=== PATIENT | male | born 1940 | race Caucasian/White ===

== ENCOUNTER 2022-04-14 14:35 | Inpatient (IN) ==
[2022-04-14] MEDS ORDERED: SODIUM CHLORIDE 0.9% 500 ML IV SCH (15:15)
--- NOTE | 2022-04-14 15:15 | Emergency Department Note ---
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 Evidently had COVID about 8 weeks ago and recovering from this but not quite back to baseline. Had Mohs surgery for a right cheek lesion fairly extensive in nature 2 weeks ago today. Evidently started Keflex for antibiotics after this but missed may be the first day of antibiotics with this. Developed an infection here and was admitted for a week at [facility] discharged on Tuesday. Is on vancomycin and discharged on doxycycline. Had a little bit of nausea then but worsened nausea last several days at home with generalized weakness hardly getting around. No diarrhea reported. Not reporting pain. No trauma or falls reported. Still having dressing changes but stop the doxycycline a day or 2 ago as he thought this may be upsetting his stomach. Daughter provides supplemental history as the patient is quite fatigued. Patient's been having again nausea and vomiting issues and not eating much. Did take a dose or 2 of Cipro during this time as well. History of resistant urine infections in the past. REVIEW OF SYSTEMS: A total of 10 review of systems was obtained and negative except as stated above in the HPI. 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 EYES: No injection, discharge or icterus. NECK: Trachea midline. ENT: Mucous membranes pink and moist. LUNGS: Airway patent. No retractions. Breath sounds clear HEART: Regular rate and rhythm. No chest wall tenderness ABDOMEN: Soft and non-tender, without guarding or rebound. Suprapubic catheter in place without significant surrounding erythema or bloody discharge. BACK:No bilateral flank tenderness. SKIN: Acyanotic, warm, dry, without rashes EXTREMITIES: Without swelling, tenderness or deformity NEUROLOGICAL: No focal deficits. No aphasia. No facial droop or slurred speech. EK bpm sinus rhythm with PACs. No acute ST segment elevation or depression some nonspecific T wave changes. QTc 470. CONTINUOUS CARDIAC MONITORING: was ordered and showed a heart rate of 70s-80s bpm in normal sinus rhythm occasional PAC Patient's laboratory studies and imaging reviewed. Differential includes Infection, dehydration, metabolic abnormality, hypo/hyperglycemia, electrolyte disturbance, anemia, hypoxia, cardiac sources, intracerebral event, toxicologic, neurologic, as well as other pathologies. IMPRESSION/MEDICAL DECISION MAKING: Reviewed patient's records from [facility] from recent admission there. Had MRSA cultures from the facial wound. Now very weak at home. History of resistant UTIs in the past on suppressive therapy but has not had catheter changed in several weeks. We will change here and obtain sample as well as blood cultures and surface culture from the right cheek wound. Patient not tolerating his doxycycline at home and having nausea and vomiting. Benign abdomen on exam and not having focal neurological deficits. Given his decreased activity and the vomiting however we will complete a CT of the head as well as the abdomen pelvis to exclude occult intracranial injury or occult abdominal issue. Does begin vomiting here with some trace amounts of blood. Given some IV Tylenol and Zofran. No anemia or significant leukocytosis on blood work. Lactate is elevated 3.3 and given IV fluid resuscitation. Mild hyponatremia. Minimal troponin elevation. TSH is elevated. Negative COVID luckily. Given vancomycin for history of MRSA of the facial wound. Urinalysis is somewhat concerning for infection. CT of the head and abdomen pelvis per radiology without significant findings. Still bit nauseous with some brown contents. Given some Protonix but not clearly an upper GI bleed. Urinalysis does question some yeast and will defer to the hospitalist possible fungal treatment for urine. Did replace the patient's suprapubic catheter at bedside in the standard fashion with sterile technique and Betadine prep. 18 Citizen Of [place] Senior was exchanged without complication and new Senior bag connected as well. Patient tolerated well. DIAGNOSIS: Weakness, face cellulitis, nausea and vomiting, acute UTI DISPOSITION: Hospitalist will evaluate. Daughter and patient updated at bedside. 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 > follows with neuro History of kidney stones Hx of sepsis October 2020 from infection of the urinary sphincter > sphincter then removed Insomnia Interstitial lung disease Prostate cancer 2001 > radiation/chemo, now just Zytiga daily Suprapubic catheter in place Surgical History H/O radical prostatectomy History of adenoidectomy History of cataract surgery RT History of colonoscopy History of tonsillectomy History of tooth extraction History of urinary tract surgery urinary sphincter placed approx year after prostate surgery > since removed Family History Mother Diabetes Father Diabetes Social History Smoking Status: Unknown if ever smoked Second Hand Exposure: No; Hx Alcohol Use: No Hx Substance Use: No Preferred Language: Tajik Communication Ability: Effective Overhead Line Worker Required: No Beliefs That Will Affect Care: None Current Living Situation: Family Feels Safe at Home: Yes Assistive Devices: Glasses and Walker Allergies Allergies Allergy/AdvReac Type Severity Reaction Status Date / Time No Known Allergies Allergy Verified 04/14/22 18:32 Home Meds Home Medications Medication Instructions Recorded Confirmed ascorbic acid (vitamin C) 500 mg 500 mg PO BID 08/10/21 04/14/22 tablet (Vitamin C) cholecalciferol (vitamin D3) 50 50 mcg PO QAM 08/10/21 04/14/22 mcg (2,000 unit) tablet (Vitamin D3) diphenoxylate-atropine 2.5 1 tab PO DAILY PRN Diarrhea 08/10/21 04/14/22 mg-0.025 mg tablet (Lomotil) estradiol 2 mg tablet 2 mg PO QAM 08/10/21 04/14/22 leuprolide acetate (6 month) 45 mg 45 mg IM DIRECTED 08/10/21 04/14/22 intramuscular syringe kit (Lupron Depot) metoprolol succinate 25 mg 25 mg PO QAM 08/10/21 04/14/22 tablet,extended release 24 hr prednisone 5 mg tablet 5 mg PO BID 08/10/21 04/14/22 aspirin 81 mg tablet,delayed 81 mg PO Q OTHER DAY 11/05/21 04/14/22 release abiraterone 500 mg tablet (Zytiga) 1,000 mg PO DAILYBB 04/14/22 04/14/22 atorvastatin 40 mg tablet 40 mg PO DAILY 04/14/22 04/14/22 calcium citrate 200 mg (950 mg) 200 mg PO DAILY 04/14/22 04/14/22 tablet coenzyme Q10 100 mg capsule 100 mg PO DAILY 04/14/22 04/14/22 (CoQ-10) cranberry extract 425 mg capsule 425 mg PO BID 04/14/22 04/14/22 (Cranberry Juice Powder) doxycycline hyclate 100 mg capsule 100 mg PO BID 04/14/22 04/14/22 famotidine 10 mg tablet (Pepcid AC) 10 mg PO HS PRN Gastric Reflux 04/14/22 04/14/22 magnesium 143 mg PO HS 04/14/22 04/14/22 magnesium hydroxide 400 mg/5 mL 15 ml PO DAILY PRN Constipation 04/14/22 04/14/22 oral suspension (Milk of Magnesia) methenamine hippurate 1 gram tablet 1 g PO BID 04/14/22 04/14/22 cvxrhhthcqko-zqsatwge-[id number] tablet 1 tab PO DAILY 04/14/22 04/14/22 mupirocin 2 % topical ointment 1 applic topical DAILY 04/14/22 04/14/22 nitrofurantoin macrocrystal 50 mg 500 mg PO BID 04/14/22 04/14/22 capsule sulfamethoxazole 800 1 tab PO BID 04/14/22 04/14/22 mg-trimethoprim 160 mg tablet zinc 50 mg capsule 50 mg PO DAILY 04/14/22 04/14/22 Results & Data (ED) Vital Signs Vital Signs - 24 hr 04/14/22 14:25 04/14/22 16:34 04/14/22 15:01 Temperature 37.5 C Temperature Source Oral Pulse Rate 98 H 88 Pulse Rate [Apical] 74 Pulse Rhythm Regular Pulse Strength Normal Respiratory Rate 18 Respiratory Effort / Characteristics Non-Labored Non-Labored Respiratory Depth Normal Normal Respiratory Pattern Regular Regular Blood Pressure 144/55 H Blood Pressure [Right Arm] 155/75 H Blood Pressure Mean 84 Blood Pressure Mean [Right Arm] 101 Blood Pressure Position Lying Blood Pressure Position [Right Arm] Lying Pulse Oximetry 98 99 99 Oxygen Delivery Method Room Air Room Air Room Air Sepsis Recent Fever Within 48 Hours No Sepsis New/Unexplained Change in Mental Status No Sepsis Action Taken by Nursing No Action Required 04/14/22 18:00 04/14/22 20:00 Temperature 37.1 C Temperature Source Oral Pulse Rate Pulse Rate [Apical] 85 84 Pulse Rhythm Pulse Strength Respiratory Rate 22 20 Respiratory Effort / Characteristics Non-Labored Respiratory Depth Normal Respiratory Pattern Regular Blood Pressure Blood Pressure [Right Arm] 111/58 L 106/65 Blood Pressure Mean Blood Pressure Mean [Right Arm] 75 78 Blood Pressure Position Blood Pressure Position [Right Arm] Lying Pulse Oximetry 98 94 Oxygen Delivery Method Room Air Room Air Sepsis Recent Fever Within 48 Hours Sepsis New/Unexplained Change in Mental Status Sepsis Action Taken by Nursing Laboratory Data Result diagrams: 04/14/22 15:27 04/14/22 15:27 Lab Results 04/14/22 04/14/22 04/14/22 Range/Units 15:27 15:27 15:27 WBC 5.88 (4.8-10.8) K/ul RBC 4.07 L (4.63-6.08) M/uL Hgb 13.0 L (14.0-18.0) g/dl Hct 39.1 L (40.1-51.0) % MCV 96.1 (80.0-100.0) fL MCH 31.9 (25.0-34.0) pg MCHC 33.2 (32.0-36.0) g/dL RDW Std Deviation 44.6 (36.4-46.3) fL RDW Coeff of [place] 12.7 (11.5-14.5) % Plt Count 324 (130-400) K/uL MPV 9.8 (9.4-12.4) fL Immature Gran % (Auto) 0.7 % Neut % (Auto) 64.1 % Lymph % (Auto) 16.2 % [place] % (Auto) 12.4 % Eos % (Auto) 6.1 % Baso % (Auto) 0.5 % Neut # (Auto) 3.77 (1.4-6.5) K/uL Lymph # (Auto) 0.95 L (1.2-3.4) K/uL [place] # (Auto) 0.73 (0.24-0.82) K/uL Eos # (Auto) 0.36 (0-0.50) K/uL Baso # (Auto) 0.03 (0-0.2) K/uL Immature Gran # (Auto) 0.04 H (0.00-0.02) K/uL PT (9.0-12.0) Seconds INR (0.9-1.1) Sodium 132 L (136-145) mmol/L Potassium 3.8 (3.5-5.1) mmol/L Chloride 99 (98-107) mmol/L Carbon Dioxide 24 (21-32) mmol/L Anion Gap 9 (3-11) BUN 7 (6-23) mg/dl Creatinine 0.98 (0.6-1.4) mg/dl Est Cr Clr Drug Dosing 52.4 ml/min Est GFR ( Amer) 82.9 ml/min Est GFR (Non-Af Amer) 71.5 ml/min BUN/Creatinine Ratio 7.1 L (10-20) Glucose 94 (70-99(Fasting)) mg/dl POC Glucose (70-99) mg/dl Lactate (0.4-2.0) mmol/L Calcium 8.7 (8.5-10.1) mg/dl Magnesium 1.7 (1.7-2.4) mg/dl Total Bilirubin 0.9 (0.2-1.0) mg/dl AST 40 H (13-39) U/L ALT 24 (7-52) U/L Alkaline Phosphatase 118 H (34-104) U/L Troponin I High Sens 21.2 H (0-20) pg/ml Total Protein 6.1 (6.0-8.3) gm/dl Albumin 2.9 L (3.4-5.0) gm/dl Globulin 3.2 (2.5-4.0) gm/dl Albumin/Globulin Ratio 0.9 (0.9-2) Lipase 25 (11-82) U/L Procalcitonin (0-0.5) ng/ml TSH 13.331 H (0.300-4.500) uIu/ml Free T4 0.93 (0.61-1.60) ng/dl Urine Color Urine Appearance (Clear) Urine pH (4.5-7.5) Ur Specific [place] (1.000-1.030) Urine Protein (Negative) Urine Glucose (UA) (Negative) Urine Ketones (Negative) Urine Blood (Negative) Urine Nitrite (Negative) Urine Bilirubin (Negative) Urine Urobilinogen (Negative) Ur Leukocyte Esterase (Negative) Urine WBC (Auto) (0-5) /hpf Urine RBC (Auto) (0-4) /hpf U Hyaline Cast (Auto) (0-5) /lpf U Epithel Cells (Auto) (0-5) /lpf Urine Bacteria (Auto) (Negative) Ur Renal Epithelial Cell (0-5) /lpf Urine Crystals Urine Yeast (None Prsent) SARS-CoV-2, RNA, NAAT (NEGATIVE) 04/14/22 04/14/22 04/14/22 Range/Units 15:27 15:32 15:32 WBC (4.8-10.8) K/ul RBC (4.63-6.08) M/uL Hgb (14.0-18.0) g/dl Hct (40.1-51.0) % MCV (80.0-100.0) fL MCH (25.0-34.0) pg MCHC (32.0-36.0) g/dL RDW Std Deviation (36.4-46.3) fL RDW Coeff of [place] (11.5-14.5) % Plt Count (130-400) K/uL MPV (9.4-12.4) fL Immature Gran % (Auto) % Neut % (Auto) % Lymph % (Auto) % [place] % (Auto) % Eos % (Auto) % Baso % (Auto) % Neut # (Auto) (1.4-6.5) K/uL Lymph # (Auto) (1.2-3.4) K/uL [place] # (Auto) (0.24-0.82) K/uL Eos # (Auto) (0-0.50) K/uL Baso # (Auto) (0-0.2) K/uL Immature Gran # (Auto) (0.00-0.02) K/uL PT 14.2 H (9.0-12.0) Seconds INR 1.4 H (0.9-1.1) Sodium (136-145) mmol/L Potassium (3.5-5.1) mmol/L Chloride (98-107) mmol/L Carbon Dioxide (21-32) mmol/L Anion Gap (3-11) BUN (6-23) mg/dl Creatinine (0.6-1.4) mg/dl Est Cr Clr Drug Dosing ml/min Est GFR ( Amer) ml/min Est GFR (Non-Af Amer) ml/min BUN/Creatinine Ratio (10-20) Glucose (70-99(Fasting)) mg/dl POC Glucose (70-99) mg/dl Lactate 3.3 H* (0.4-2.0) mmol/L Calcium (8.5-10.1) mg/dl Magnesium (1.7-2.4) mg/dl Total Bilirubin (0.2-1.0) mg/dl AST (13-39) U/L ALT (7-52) U/L Alkaline Phosphatase (34-104) U/L Troponin I High Sens (0-20) pg/ml Total Protein (6.0-8.3) gm/dl Albumin (3.4-5.0) gm/dl Globulin (2.5-4.0) gm/dl Albumin/Globulin Ratio (0.9-2) Lipase (11-82) U/L Procalcitonin 0.25 (0-0.5) ng/ml TSH (0.300-4.500) uIu/ml Free T4 (0.61-1.60) ng/dl Urine Color Urine Appearance (Clear) Urine pH (4.5-7.5) Ur Specific [place] (1.000-1.030) Urine Protein (Negative) Urine Glucose (UA) (Negative) Urine Ketones (Negative) Urine Blood (Negative) Urine Nitrite (Negative) Urine Bilirubin (Negative) Urine Urobilinogen (Negative) Ur Leukocyte Esterase (Negative) Urine WBC (Auto) (0-5) /hpf Urine RBC (Auto) (0-4) /hpf U Hyaline Cast (Auto) (0-5) /lpf U Epithel Cells (Auto) (0-5) /lpf Urine Bacteria (Auto) (Negative) Ur Renal Epithelial Cell (0-5) /lpf Urine Crystals Urine Yeast (None Prsent) SARS-CoV-2, RNA, NAAT (NEGATIVE) 04/14/22 04/14/22 04/14/22 Range/Units 15:34 15:43 16:33 WBC (4.8-10.8) K/ul RBC (4.63-6.08) M/uL Hgb (14.0-18.0) g/dl Hct (40.1-51.0) % MCV (80.0-100.0) fL MCH (25.0-34.0) pg MCHC (32.0-36.0) g/dL RDW Std Deviation (36.4-46.3) fL RDW Coeff of [place] (11.5-14.5) % Plt Count (130-400) K/uL MPV (9.4-12.4) fL Immature Gran % (Auto) % Neut % (Auto) % Lymph % (Auto) % [place] % (Auto) % Eos % (Auto) % Baso % (Auto) % Neut # (Auto) (1.4-6.5) K/uL Lymph # (Auto) (1.2-3.4) K/uL [place] # (Auto) (0.24-0.82) K/uL Eos # (Auto) (0-0.50) K/uL Baso # (Auto) (0-0.2) K/uL Immature Gran # (Auto) (0.00-0.02) K/uL PT (9.0-12.0) Seconds INR (0.9-1.1) Sodium (136-145) mmol/L Potassium (3.5-5.1) mmol/L Chloride (98-107) mmol/L Carbon Dioxide (21-32) mmol/L Anion Gap (3-11) BUN (6-23) mg/dl Creatinine (0.6-1.4) mg/dl Est Cr Clr Drug Dosing ml/min Est GFR ( Amer) ml/min Est GFR (Non-Af Amer) ml/min BUN/Creatinine Ratio (10-20) Glucose (70-99(Fasting)) mg/dl POC Glucose 90 (70-99) mg/dl Lactate (0.4-2.0) mmol/L Calcium (8.5-10.1) mg/dl Magnesium (1.7-2.4) mg/dl Total Bilirubin (0.2-1.0) mg/dl AST (13-39) U/L ALT (7-52) U/L Alkaline Phosphatase (34-104) U/L Troponin I High Sens (0-20) pg/ml Total Protein (6.0-8.3) gm/dl Albumin (3.4-5.0) gm/dl Globulin (2.5-4.0) gm/dl Albumin/Globulin Ratio (0.9-2) Lipase (11-82) U/L Procalcitonin (0-0.5) ng/ml TSH (0.300-4.500) uIu/ml Free T4 (0.61-1.60) ng/dl Urine Color Yellow Urine Appearance Turbid A (Clear) Urine pH 8.5 H (4.5-7.5) Ur Specific [place] 1.011 (1.000-1.030) Urine Protein Trace H (Negative) Urine Glucose (UA) Negative (Negative) Urine Ketones Negative (Negative) Urine Blood Negative (Negative) Urine Nitrite Negative (Negative) Urine Bilirubin Negative (Negative) Urine Urobilinogen Negative (Negative) Ur Leukocyte Esterase 3+ H (Negative) Urine WBC (Auto) >30 H (0-5) /hpf Urine RBC (Auto) 0-4 (0-4) /hpf U Hyaline Cast (Auto) 1-5 (0-5) /lpf U Epithel Cells (Auto) 20-30 H (0-5) /lpf Urine Bacteria (Auto) Negative (Negative) Ur Renal Epithelial Cell 0-5 (0-5) /lpf Urine Crystals Not Reportable Urine Yeast Budding w/ Hyphae A (None Prsent) SARS-CoV-2, RNA, NAAT NEGATIVE (NEGATIVE) 04/14/22 Range/Units 17:43 WBC (4.8-10.8) K/ul RBC (4.63-6.08) M/uL Hgb (14.0-18.0) g/dl Hct (40.1-51.0) % MCV (80.0-100.0) fL MCH (25.0-34.0) pg MCHC (32.0-36.0) g/dL RDW Std Deviation (36.4-46.3) fL RDW Coeff of [place] (11.5-14.5) % Plt Count (130-400) K/uL MPV (9.4-12.4) fL Immature Gran % (Auto) % Neut % (Auto) % Lymph % (Auto) % [place] % (Auto) % Eos % (Auto) % Baso % (Auto) % Neut # (Auto) (1.4-6.5) K/uL Lymph # (Auto) (1.2-3.4) K/uL [place] # (Auto) (0.24-0.82) K/uL Eos # (Auto) (0-0.50) K/uL Baso # (Auto) (0-0.2) K/uL Immature Gran # (Auto) (0.00-0.02) K/uL PT (9.0-12.0) Seconds INR (0.9-1.1) Sodium (136-145) mmol/L Potassium (3.5-5.1) mmol/L Chloride (98-107) mmol/L Carbon Dioxide (21-32) mmol/L Anion Gap (3-11) BUN (6-23) mg/dl Creatinine (0.6-1.4) mg/dl Est Cr Clr Drug Dosing ml/min Est GFR ( Amer) ml/min Est GFR (Non-Af Amer) ml/min BUN/Creatinine Ratio (10-20) Glucose (70-99(Fasting)) mg/dl POC Glucose (70-99) mg/dl Lactate 1.8 (0.4-2.0) mmol/L Calcium (8.5-10.1) mg/dl Magnesium (1.7-2.4) mg/dl Total Bilirubin (0.2-1.0) mg/dl AST (13-39) U/L ALT (7-52) U/L Alkaline Phosphatase (34-104) U/L Troponin I High Sens (0-20) pg/ml Total Protein (6.0-8.3) gm/dl Albumin (3.4-5.0) gm/dl Globulin (2.5-4.0) gm/dl Albumin/Globulin Ratio (0.9-2) Lipase (11-82) U/L Procalcitonin (0-0.5) ng/ml TSH (0.300-4.500) uIu/ml Free T4 (0.61-1.60) ng/dl Urine Color Urine Appearance (Clear) Urine pH (4.5-7.5) Ur Specific [place] (1.000-1.030) Urine Protein (Negative) Urine Glucose (UA) (Negative) Urine Ketones (Negative) Urine Blood (Negative) Urine Nitrite (Negative) Urine Bilirubin (Negative) Urine Urobilinogen (Negative) Ur Leukocyte Esterase (Negative) Urine WBC (Auto) (0-5) /hpf Urine RBC (Auto) (0-4) /hpf U Hyaline Cast (Auto) (0-5) /lpf U Epithel Cells (Auto) (0-5) /lpf Urine Bacteria (Auto) (Negative) Ur Renal Epithelial Cell (0-5) /lpf Urine Crystals Urine Yeast (None Prsent) SARS-CoV-2, RNA, NAAT (NEGATIVE) Administered Medications Discontinued Medications Sodium Chloride (Nss) 500 mls @ 999 mls/hr IV .Q31M JOSE ANTONIO Stop: 04/14/22 15:45 Last Infusion: 04/14/22 16:42 Dose: 0 mls/hr Documented By: Admin: 04/14/22 15:54 Dose: 999 mls/hr Documented By: QGV Sodium Chloride (Nss 1000ml) 1,000 mls @ 999 mls/hr IV .Q1H1M ONE Stop: 04/14/22 17:18 Last Infusion: 04/14/22 18:37 Dose: 0 mls/hr Documented By: Admin: 04/14/22 16:23 Dose: 999 mls/hr Documented By: QGV Acetaminophen (Ofirmev) 1,000 mg in 100 mls @ 400 mls/hr IV NOW STA Stop: 04/14/22 16:32 Last Infusion: 04/14/22 16:42 Dose: 0 mls/hr Documented By: Admin: 04/14/22 16:22 Dose: 400 mls/hr Documented By: QGV Vancomycin HCl 1,500 mg/ (Sodium Chloride) 530 mls @ 200 mls/hr IV NOW ONE Stop: 04/14/22 19:36 Last Admin: 04/14/22 18:27 Dose: 200 mls/hr Documented By: QGV Pantoprazole Sodium 80 mg/ (Dextrose) 100 mls @ 400 mls/hr IV ONE STA Stop: 04/14/22 17:50 Last Infusion: 04/14/22 18:58 Dose: 0 mls/hr Documented By: Admin: 04/14/22 18:34 Dose: 400 mls/hr Documented By: QGV Ondansetron HCl (Ondansetron Inj 2 Mg/Ml 2 Ml Vial) 4 mg IV NOW STA Stop: 04/14/22 16:09 Last Admin: 04/14/22 16:23 Dose: 4 mg Documented By: QGV Ondansetron HCl (Ondansetron Inj 2 Mg/Ml 2 Ml Vial) 4 mg IV NOW STA Stop: 04/14/22 17:38 Last Admin: 04/14/22 18:27 Dose: 4 mg Documented By: QGV Imaging Data Radiologist's Impression: Chest X-Ray 04/14/22 15:01 XR chest 1V portable CLINICAL HISTORY: weakness TECHNIQUE: Single frontal radiograph of the chest was obtained. Comparison: None available at the time of this dictation. FINDINGS: No lines and tubes are seen. Calcified aortic knob is seen. Prominence and cephalization of the vasculature is seen. No evidence of pleural effusion or pneumothorax. IMPRESSION: Mild pulmonary edema. ACT 112: Negative or not required by law. Electronically signed by: Dieudonne García M.D. 04/14/2022 5:04 PM KUB X-Ray 04/14/22 15:01 XR KUB/Abdomen 1 view CLINICAL HISTORY: vomiting, weak TECHNIQUE: 1 view of the abdomen was obtained. Comparison: None available at the time of this dictation. FINDINGS: Surgical clips are seen in the pelvis. The osseous structures are grossly unremarkable. There is a mildly distended loop of small bowel measuring 32 mm in diameter. A moderate amount of stool is noted within the large bowel. IMPRESSION: No definite evidence of small bowel obstruction, although a 32 mm loop of small bowel is noted in the right abdomen. Attention on CT abdomen pelvis is rec ommended. ACT 112: Negative or not required by law. Electronically signed by: Dieudonne García M.D. 04/14/2022 5:04 PM Abdomen/Pelvis CT 04/14/22 16:18 CT abd pelvis wo con CLINICAL HISTORY: vomiting, weak TECHNIQUE: Helical axial images of the abdomen and pelvis were obtained. Au tomated dose lowering techniques and/or adjustment according to patient size were utilized for this exam. This exam was performed without intravenous contrast. CT DOSE: 1529.17 mGy.cm COMPARISON: None available at the time of this dictation. FINDINGS: Lower chest: Peripheral reticular interstitial changes and bronchiectasis are seen. Liver: Unremarkable. No focal lesions are seen. Gallbladder and biliary tree: No calcified gallstones. Normal caliber wall. No intra- or extrahepatic biliary ductal dilation. Pancreas: Unremarkable, no focal lesions. Spleen: Unremarkable. Adrenals: Unremarkable. Kidneys and ureters: Perinephric stranding is noted bilaterally. Bladder: A suprapubic catheter is seen. The bladder is decompressed. Reproductive organs: Surgical clips are seen, patient may be status post prostatectomy. Bowel: There is a small hiatal hernia. A fluid-filled esophagus is noted. There are a few loops of distended small bowel measuring up to 30 mm in diameter, with no evidence of transition point or significant dilation. Lymph nodes Retroperitoneal: Unremarkable. Pelvic: Few calcifications are noted in the pelvic sidewall. Mesenteric: Unremarkable. Peritoneum: Normal. Vessels: Atherosclerotic calcifications are seen. Abdominal wall: Unremarkable. Bones: Degenerative changes in the visualized spine. A blastic focus is noted in the vertebral body of L1 which may represent a bone island. IMPRESSION: 1. There are mildly distended loops of small bowel but no yue dilation to suggest small bowel obstruction. 2. There is a small hiatal hernia with liquid contents in the esophagus compatible with recent vomiting. 3. Reticular opacities in the lung bases may represent interstitial lung disease. ACT 112: Negative or not required by law. Electronically signed by: Dieudonne García M.D. 04/14/2022 5:[address] 04/14/22 16:18 CT head/brain wo con CLINICAL HISTORY: weak, vomiting Technique: Contiguous axial CT images of the head were acquired from the base of the skull to the vertex without intravenous contrast administration. Images were viewed in brain, subdural and bone windows. Automated dose lowering techniques and/or adjustment according to patient size were utilized for this exam. Comparison: None available at the time of this dictation. Findings: Exam is limited by patient motion. Areas of decreased attenuation are present in the periventricular and subcortical white matter bilaterally consistent with small vessel ischemic disease. Generalized cerebral atrophy with commensurate enlargement of the ventricles, sulci, and cisterns is also present. There is no acute intracranial hemorrhage or evidence of acute territorial infarction. No shift of the midline structures, mass effect, or extra-axial abnormalities are shown. Atherosclerotic calcifications are present in the intracranial segments of the internal carotid arteries. Calcifications are noted in the falx. Soft tissue thickening is in the left maxillary sinus. The orbits appear normal. There are no acute fractures of the calvaria or scalp swelling. Impression: No acute intracranial hemorrhage, no evidence of acute territorial infarction or other acute intracranial disease process. ACT 112: Negative or not required by law. Electronically signed by: Dieudonne García M.D. 04/14/2022 5:05 PM Discharge Plan Visit Data Chief Complaint: Infection ED Provider: Aries Hartmann Discharge Problem: Recurrent urinary tract infection, Weakness, Nausea & vomiting, Elevated lactic acid level Patient Disposition: Admitted As Inpatient Forms Stand Alone Forms: [facility] Prescriptions Prescriptions: No Action doxycycline hyclate 100 mg capsule 100 mg PO BID Rx Instructions: take for 9 days ordered 04/10/22 sulfamethoxazole-trimethoprim 800-160 mg tablet 1 tab PO BID Rx Instructions: take for 14 days ordered 04/13/22 mupirocin 2 % ointment 1 applic TOPICAL DAILY Rx Instructions: start 04/11/22 apply to wound abiraterone [Zytiga] 500 mg Tablet 1,000 mg PO DAILYBB Rx Instructions: take 2 tablets 1 hour before breakfast atorvastatin 40 mg Tablet 40 mg PO DAILY famotidine [Pepcid AC] 10 mg Tablet 10 mg PO HS PRN (Reason: Gastric Reflux) Centrum Silver Tablet 1 tab PO DAILY calcium citrate [Citracal] 200 mg (950 mg) Tablet 200 mg PO DAILY Rx Instructions: total calcium 800 mg & vitamin d 1000 magnesium 143 mg PO HS cranberry extract [Cranberry Juice Powder] 425 mg Capsule 425 mg PO BID Rx Instructions: administer with meals methenamine hippurate 1 gram tablet 1 g PO BID coenzyme Q10 [CoQ-10] 100 mg Capsule 100 mg PO DAILY zinc 50 mg Capsule 50 mg PO DAILY nitrofurantoin macrocrystal 50 mg capsule 500 mg PO BID magnesium hydroxide [Milk of Magnesia] 400 mg/5 mL Suspension 15 ml PO DAILY PRN (Reason: Constipation) prednisone 5 mg Tablet 5 mg PO BID Rx Instructions: take with food diphenoxylate-atropine [Lomotil] 2.5-0.025 mg Tablet 1 tab PO DAILY PRN (Reason: Diarrhea) ascorbic acid (vitamin C) [Vitamin C] 500 mg Tablet 500 mg PO BID estradiol 2 mg Tablet 2 mg PO QAM metoprolol succinate 25 mg Tablet Extended Release 24 Hr 25 mg PO QAM cholecalciferol (vitamin D3) [Vitamin D3] 50 mcg (2,000 unit) Tablet 50 mcg PO QAM Lupron Depot (6 Month) 45 mg Syringe Kit 45 mg IM DIRECTED Rx Instructions: every 6 months aspirin 81 mg Tablet,Delayed Release (Dr/Ec) 81 mg PO Q OTHER DAY Referrals Referrals: Sly Ulloa MD [Primary Care Provider] -
[2022-04-14 15:59] LABS: Basophils # (auto) 0.03 K/uL (0-0.2); Basophils % (auto) 0.5 %; Eosinophils # (auto) 0.36 K/uL (0-0.50); Eosinophils % (auto) 6.1 %; Hematocrit (blood only) 39.1 % (40.1-51.0); Immature Granulocytes # (auto) 0.04 K/uL (0.00-0.02); Immature Granulocytes % (auto) 0.7 %; Lymphocytes # (auto) 0.95 K/uL (1.2-3.4); Lymphocytes % (auto) 16.2 %; Mean Corpuscular Hemoglobin 31.9 pg (25.0-34.0); Mean Corpuscular Hgb Conc 33.2 g/dL (32.0-36.0); Mean Corpuscular Volume 96.1 fL (80.0-100.0); Mean Platelet Volume 9.8 fL (9.4-12.4); Monocytes # (auto) 0.73 K/uL (0.24-0.82); Monocytes % (auto) 12.4 %; Neutrophils # (auto) 3.77 K/uL (1.4-6.5); Neutrophils % (auto) 64.1 %; Platelet Count 324 K/uL (130-400); RDW Coefficient of Variation 12.7 % (11.5-14.5); RDW Standard Deviation 44.6 fL (36.4-46.3); Red Blood Count 4.07 M/uL (4.63-6.08); White Blood Count 5.88 K/ul (4.8-10.8)
[2022-04-14] MEDS ORDERED: ONDANSETRON INJ 2 MG/ML 2 ML VIAL IV STA ×2 (16:08→17:37)
[2022-04-14 16:10] LABS: INR 1.4 (0.9-1.1); Prothrombin Time 14.2 Seconds (9.0-12.0)
[2022-04-14 16:18] LABS: Troponin I High Sensitivity 21.2 pg/ml (0-20)
[2022-04-14] MEDS ORDERED: ACETAMINOPHEN 1,000 MG/100 ML VIAL IV STA (16:18)
[2022-04-14] MEDS ORDERED: SODIUM CHLORIDE 0.9% 1000ML 1,000 ML IV ONE (16:18)
[2022-04-14 16:23] LABS: Albumin Globulin Ratio 0.9 (0.9-2); Albumin Level 2.9 gm/dl (3.4-5.0); BUN Creatinine Ratio 7.1 (10-20); Bilirubin,Total 0.9 mg/dl (0.2-1.0); Calcium 8.7 mg/dl (8.5-10.1); Creatinine Clr Calc Pharmacy 52.4 ml/min; Est GFR (African American) 82.9 ml/min; Est GFR (Non-African American) 71.5 ml/min; Globulin 3.2 gm/dl (2.5-4.0); Magnesium 1.7 mg/dl (1.7-2.4); Potassium 3.8 mmol/L (3.5-5.1); Total Protein 6.1 gm/dl (6.0-8.3)
[2022-04-14 16:26] LABS: Thyroid Stimulating Hormone 13.331 uIu/ml (0.300-4.500)
[2022-04-14 16:56] LABS: Appearance Urine Turbid (Clear); Bacteria Urine Automated Negative (Negative); Bilirubin Urine Negative (Negative); Blood Urine Negative (Negative); Color Urine Yellow; Epithelial Cell Urine Auto 20-30 /lpf (0-5); Glucose Urine UA Negative (Negative); Ketones Urine Negative (Negative); Leukocyte Esterase Urine 3+ (Negative); Nitrite Urine Negative (Negative); Specific Gravity Urine 1.011 (1.000-1.030); Urobilinogen Urine Negative (Negative); WBC Urine Automated >30 /hpf (0-5); pH Urine 8.5 (4.5-7.5)
[2022-04-14] MEDS ORDERED: VANCOMYCIN CONSULT ACTIVE PRN (16:58)
[2022-04-14] MEDS ORDERED: VANCOMYCIN HCL 1,500 MG in SODIUM CHLORIDE 0.9% 500 ML IV ONE (16:58)
[2022-04-14 17:02] LABS: Protein Urine Trace (Negative)
--- NOTE | 2022-04-14 17:05 | XRay Report ---
XR KUB/Abdomen 1 view CLINICAL HISTORY: vomiting, weak TECHNIQUE: 1 view of the abdomen was obtained. Comparison: None available at the time of this dictation. FINDINGS: Surgical clips are seen in the pelvis. The osseous structures are grossly unremarkable. There is a mi ldly distended loop of small bowel measuring 32 mm in diameter. A moderate amount of stool is noted w ithin the large bowel. IMPRESSION: No definite evidence of small bowel obstruction, although a 32 mm loop of small bowel is noted in the right abdomen. Attention on CT abdomen pelvis is recommended. ACT 112: Negative or not required by law. Electronically signed by: Dieudonne García M.D. 04/14/2022 5:04 PM
--- NOTE | 2022-04-14 17:06 | XRay Report ---
XR chest 1V portable CLINICAL HISTORY: weakness TECHNIQUE: Single frontal radiograph of the chest was obtained. Comparison: None available at the time of this dictation. FINDINGS: No lines and tubes are seen. Calcified aortic knob is seen. Prominence and cephalization of the vascu lature is seen. No evidence of pleural effusion or pneumothorax. IMPRESSION: Mild pulmonary edema. ACT 112: Negative or not required by law. Electronically signed by: Dieudonne García M.D. 04/14/2022 5:04 PM
--- NOTE | 2022-04-14 17:07 | CT Scan Report ---
CT head/brain wo con CLINICAL HISTORY: weak, vomiting Technique: Contiguous axial CT images of the head were acquired from the base of the skull to the yamile joselyn without intravenous contrast administration. Images were viewed in brain, [facility]. Automated dose lowering techniques and/or adjustment according to patient size were utilized for this exam. Comparison: None available at the time of this dictation. Findings: Exam is limited by patient motion. Areas of decreased attenuation are present in the periventricular and subcortical white matter bilate rally consistent with small vessel ischemic disease. Generalized cerebral atrophy with commensurate e nlargement of the ventricles, sulci, and cisterns is also present. There is no acute intracranial hem orrhage or evidence of acute territorial infarction. No shift of the midline structures, mass effect, or extra-axial abnormalities are shown. Atherosclerotic calcifications are present in the intracran ial segments of the internal carotid arteries. Calcifications are noted in the falx. Soft tissue thickening is in the left maxillary sinus. The orbits appear normal. There are no acute fractures of the calvaria or scalp swelling. Impression: No acute intracranial hemorrhage, no evidence of acute territorial infarction or other acute intracra nial disease process. ACT 112: Negative or not required by law. Electronically signed by: Dieudonne García M.D. 04/14/2022 5:05 PM
[2022-04-14 17:12] LABS: T4 Free Thyroxine 0.93 ng/dl (0.61-1.60)
[2022-04-14 17:20] LABS: RBC Urine Automated 0-4 /hpf (0-4); Renal Epithelial Cells Urine 0-5 /lpf (0-5)
--- NOTE | 2022-04-14 17:21 | CT Scan Report ---
CT abd pelvis wo con CLINICAL HISTORY: vomiting, weak TECHNIQUE: Helical axial images of the abdomen and pelvis were obtained. Automated dose lowering tech niques and/or adjustment according to patient size were utilized for this exam. This exam was perfor med without intravenous contrast. CT DOSE: 1529.17 mGy.cm COMPARISON: None available at the time of this dictation. FINDINGS: Lower chest: Peripheral reticular interstitial changes and bronchiectasis are seen. Liver: Unremarkable. No focal lesions are seen. Gallbladder and biliary tree: No calcified gallstones. Normal caliber wall. No intra- or extrahepatic biliary ductal dilation. Pancreas: Unremarkable, no focal lesions. Spleen: Unremarkable. Adrenals: Unremarkable. Kidneys and ureters: Perinephric stranding is noted bilaterally. Bladder: A suprapubic catheter is seen. The bladder is decompressed. Reproductive organs: Surgical clips are seen, patient may be status post prostatectomy. Bowel: There is a small hiatal hernia. A fluid-filled esophagus is noted. There are a few loops of di stended small bowel measuring up to 30 mm in diameter, with no evidence of transition point or signif icant dilation. Lymph nodes Retroperitoneal: Unremarkable. Pelvic: Few calcifications are noted in the pelvic sidewall. Mesenteric: Unremarkable. Peritoneum: Normal. Vessels: Atherosclerotic calcifications are seen. Abdominal wall: Unremarkable. Bones: Degenerative changes in the visualized spine. A blastic focus is noted in the vertebral body o f L1 which may represent a bone island. IMPRESSION: 1. There are mildly distended loops of small bowel but no yue dilation to suggest small bowel obst ruction. 2. There is a small hiatal hernia with liquid contents in the esophagus compatible with recent vomit ing. 3. Reticular opacities in the lung bases may represent interstitial lung disease. ACT 112: Negative or not required by law. Electronically signed by: Dieudonne García M.D. 04/14/2022 5:19 PM
[2022-04-14] MEDS ORDERED: PANTOprazole 80 MG in DEXTROSE 5% 100 ML IV STA (17:36)
[2022-04-14] MEDS ORDERED: ONDANSETRON INJ 2 MG/ML 2 ML VIAL IV PRN (22:20)
[2022-04-14] MEDS ORDERED: NITROGLYCERIN SL 0.4 MG/TAB TAB SL PRN (22:20)
[2022-04-14] MEDS ORDERED: ACETAMINOPHEN 325 MG TAB PO PRN (22:20)
[2022-04-14] MEDS: MAGNESIUM OXIDE 400 MG TAB PO SCH (23:12)
[2022-04-14] MEDS: SODIUM CHLORIDE 0.9% 1000ML 1,000 ML IV SCH (23:12)
[2022-04-14] MEDS: ASCORBIC ACID 500 MG TAB PO SCH (23:12)
[2022-04-14] MEDS: PIPERACILLIN/TAZOBACTAM 3.375 GM in DEXTROSE 5% 100 ML IV SCH (23:27)
[2022-04-14] MEDS ORDERED: PIPERACILLIN/TAZOBACTAM 4.5 GM in DEXTROSE 5% 100 ML IV ONE (23:30)
--- NOTE | 2022-04-14 23:35 | History and Physical Report ---
DATE OF ADMISSION: 04/14/2022. CHIEF COMPLAINT: Lethargy, nausea, hematemesis. HISTORY OF PRESENT ILLNESS: This is an 81-year-old male with history of prostate cancer diagnosed in 2001, aggressive disease status post robotic prostatectomy, currently developed urinary incontinence, underwent artificial urinary sphincter placement and has currently suprapubic catheter placed in 2020 as per daughter, since then had 3 sepsis; history of chronic kidney disease stage III; history of chronic diastolic congestive heart failure; chronic atrial fibrillation, anticoagulation with aspirin; history of melanoma and the patient is status post Mohs surgery recently on the right cheek, Mohs surgery was done on 03/30/2022. He was in [facility] recently for his infection on Mohs surgical site. The Mohs surgery was done for melanoma. Cultures were positive for MRSA, he was treated with IV vancomycin. He seems to be improved. Urology was consulted, but catheter was not changed. Advised to follow as outpatient with urology, discharged on doxycycline. He was in the hospital for 1 week and discharged last Tuesday. Daughter is giving the history. After coming home, he was still having lot of nausea, vomiting, they thought it was doxycycline and he stopped it and contacted his family doctor, but by the time the family doctor contacted back, he took Cipro, which was at home, but his nausea, vomiting was not improving. They thought his symptoms could be not from doxycycline as they persisted even after stopping it..Yesterday he was able to ambulate with home PT, but today was very weak, tired, not ambulating, and he vomited about 5-6 times, and had some blood in the vomitus. He has poor appetite, not at all eating.No hematuria. The patient seemed a little confused at home, was brought in here. After fluids and antibiotics, he is more alert and awake as per daughter, and talking. The patient denies any headache, denies any chest pain, no abdominal pain, no back pain, no chest pain. He is little short of breath. Denies any blurred vision or double vision. No earache, no runny nose, no sore throat, no cough. He had COVID about 8 weeks ago. Today COVID test is negative. Alert and oriented x3. Initially his lactic acid on presentation was 3.3, repeat is 1.8. Currently, hemodynamically stable, saturating okay on room air. Daughter is also concerned about his diet because he is not eating much since he got sick. ALLERGIES: No known drug allergies. PAST MEDICAL HISTORY: As mentioned above. PAST SURGICAL HISTORY: BX of skin lesion, correction of artificial sphincter, robotic laparoscopic prostatectomy, repair of bladder opening, replacement of complete tunneled catheter. MEDICATIONS: Currently the patient is on Zytiga 1000 mg p.o. daily, ascorbic acid 500 mg p.o. b.i.d., aspirin 81 mg p.o. every other day, atorvastatin 40 mg p.o. daily, calcium citrate 200 mg p.o. daily, vitamin D 50 mg p.o. daily, Lomotil daily p.r.n., docusate 100 mg p.o. b.i.d., estradiol 2 mg p.o. daily, Lupron shots as directed, magnesium 143 mg p.o. daily, metoprolol succinate 25 mg p.o. daily, MVI 1 tablet p.o. daily, prednisone 5 mg p.o. b.i.d. FAMILY HISTORY: Significant for father has arrhythmia, diabetes, heart disease; mother has heart disease, arrhythmia. SOCIAL HISTORY: , lives with his , daughter and daughter's family. No smoking. Currently, no alcohol, no drug use. REVIEW OF SYSTEMS: As per HPI. Rest of the review of systems is negative. PHYSICAL EXAMINATION: GENERAL: The patient is of moderate build, not in acute distress. VITAL SIGNS: Temperature 37.1, pulse 84, respiratory rate 20, blood pressure 106/65, oxygen 94% on room air. HEENT: Pupils equal, round, and reactive to light. Oral mucosa moist. NECK: No JVD, no neck masses. CARDIOVASCULAR: S1 and S2 heard. Regular rate and rhythm. No murmur, no gallop. RESPIRATORY SYSTEM: Normal AP diameter. No accessory muscle use. No wheezing, no crackles. ABDOMEN: Soft, bowel sounds present, nontender, no distention. CENTRAL NERVOUS SYSTEM: Alert and oriented x3. Speech is clear. No facial droop. Insight is okay. Obeys simple commands. Moves extremities. EXTREMITIES: No edema, no erythema. LABORATORY DATA: WBC 5.8, hemoglobin 13, hematocrit 39.1, platelets 324. PT 14.2, INR 1.4. Sodium 132, potassium 3.8, chloride 99, CO2 of 24, BUN 7, creatinine 0.9, serum glucose 94, lactate initially was 3.3, repeat 1.8, calcium 8.7, magnesium 1.7, total bilirubin 0.9, AST 40, ALT 24, alkaline phosphatase 118. Troponin 1 high sensitivity 21.2, lipase 25, procalcitonin 0.25, TSH 38.3, free T4 of 0.9. Urinalysis, +3 leukocyte esterase. SARS-CoV-2 rapid test negative. IMAGING DATA: CT of the head without contrast, no acute findings. CT of the abdomen and pelvis without contrast, mildly distended loops of small bowel, but no yue dilatation to the small bowel obstruction. Small hiatal hernia with liquid contents that feels comfortable with recent vomiting. Reticular opacities in the lung base, which might represent interstitial lung disease. KUB x-ray, no definite evidence of small-bowel obstruction, although a 32 mm loop of small bowel is noted in the right abdomen. Chest x-ray, mild pulmonary edema. EKG: Sinus rhythm with PACs at a rate of 77, no acute ST changes seen. ASSESSMENT AND PLAN: This is an 81-year-old male who was recently in the [facility] for cellulitis and infection of the right check Mohs surgery area, culture grew MRSA. Presents with nausea, vomiting, and hematemesis. . 1. Possible sepsis with lactic acidosis, lethargy: Could be from the infection of the Mohs surgical site. Recent cultures grew MRSA, possible urinary tract infection. Empirically started on vancomycin and Zosyn. Continue IV fluids. Monitor hemodynamics. Monitor in the tele floor. Follow the cultures. Wound Care and Urology consult in the a.m. ER changing the suprapubic catheter. 2. Hematemesis: Hemodynamically stable. Hemoglobin stable. Blood consent obtained. Holding aspirin and starting on Protonix drip. GI consult in the a.m. 3. History of prostate cancer: s/p proctectomy. Lupron shots , zytiga and prednisone. Holding prednisone for now seems have not taken since discharge from [facility].. Consulting Urology. 4. History of atrial fibrillation: On metoprolol succinate, withholding parameters. As per the EPIC notes, declined Coumadin in the past. Holding aspirin for GI bleed. 5. History of chronic diastolic congestive heart failure: Getting fluids. Will monitor for volume overload. 6. Chronic kidney disease stage III: Creatinine is 0.9, will follow the labs. 7. History of interstitial lung disease: Will monitor. 8. History of subdural hematoma in the past. 9. Deep venous thrombosis prophylaxis: Sequential compression devices for now. DISPOSITION: Closely monitor in the tele floor. Level 1 full code. PT/OT prior to discharge. Social service to help with discharge planning. Home PT versus placement. Also nutrition consult as the daughter is worried about his nutritional status. Job ID: [id number] [facility]
[2022-04-15] MEDS: PANTOprazole 40 MG in DEXTROSE 5% 100 ML IV SCH ×5 (00:04→19:37)
[2022-04-15 05:59] LABS: Basophils # (auto) 0.04 K/uL (0-0.2); Basophils % (auto) 0.4 %; Eosinophils # (auto) 0.47 K/uL (0-0.50); Eosinophils % (auto) 5.2 %; Hematocrit (blood only) 31.5 % (40.1-51.0); Hemoglobin 10.7 g/dl (14.0-18.0); Immature Granulocytes # (auto) 0.02 K/uL (0.00-0.02); Immature Granulocytes % (auto) 0.2 %; Lymphocytes # (auto) 0.83 K/uL (1.2-3.4); Lymphocytes % (auto) 9.1 %; Mean Corpuscular Hemoglobin 32.2 pg (25.0-34.0); Mean Corpuscular Volume 94.9 fL (80.0-100.0); Mean Platelet Volume 9.5 fL (9.4-12.4); Monocytes # (auto) 1.05 K/uL (0.24-0.82); Monocytes % (auto) 11.5 %; Neutrophils # (auto) 6.71 K/uL (1.4-6.5); Neutrophils % (auto) 73.6 %; Platelet Count 257 K/uL (130-400); RDW Coefficient of Variation 12.9 % (11.5-14.5); RDW Standard Deviation 44.8 fL (36.4-46.3); Red Blood Count 3.32 M/uL (4.63-6.08); White Blood Count 9.12 K/ul (4.8-10.8)
[2022-04-15] MEDS: PIPERACILLIN/TAZOBACTAM 3.375 GM in DEXTROSE 5% 100 ML IV SCH ×3 (06:16→22:03)
[2022-04-15 06:20] LABS: BUN Creatinine Ratio 6.7 (10-20); Calcium 7.4 mg/dl (8.5-10.1); Creatinine Clr Calc Pharmacy 59.1 ml/min; Est GFR (African American) 91.9 ml/min; Est GFR (Non-African American) 79.3 ml/min; Magnesium 1.6 mg/dl (1.7-2.4); Potassium 3.5 mmol/L (3.5-5.1)
--- NOTE | 2022-04-15 06:31 | Electrocardiogram Report ---
Test Reason : Blood Pressure : / mmHG Vent. Rate : 077 BPM Atrial Rate : 077 BPM P-R Int : 162 ms QRS Dur : 088 ms QT Int : 416 ms P-R-T Axes : 088 -24 -06 degrees QTc Int : 470 ms Poor data quality, interpretation may be adversely affected Sinus rhythm with Premature atrial complexes Possible Anterior infarct , age undetermined Abnormal ECG No previous ECGs available Confirmed by Raj Brown ([id number]) on 04/15/2022 6:31:12 AM Referred By: REFERRED SELF Confirmed By:Raj Brown
[2022-04-15] MEDS: VANCOMYCIN HCL 1,000 MG in SODIUM CHLORIDE 0.9% 250 ML IV SCH (08:11)
[2022-04-15] MEDS: SODIUM CHLORIDE 0.9% 1000ML 1,000 ML IV SCH (08:11)
[2022-04-15] MEDS: ABIRATERONE ACETATE PO SCH ×2 (08:18→09:56)
--- NOTE | 2022-04-15 08:54 | Urology Consultation ---
Date of Consultation April 15, 2022 Assessment & Plan (1) Recurrent urinary tract infection: (2) Suprapubic catheter: 81 yo M with complex history including prostate cancer, urosepsis, and chronic suprapubic catheter admitted for generalized weakness, nausea, hematemesis, and suspected urinary tract infection vs infection of Mohs surgical incision site. - Urology consulted for recurrent UTI. - Subjectively feeling better today. - Lactic acidosis on arrival with possible sepsis secondary to facial surgical incision vs UTI vs other, also being worked up for hematemesis. - Pt afebrile, nontoxic, hemodynamically stable. - Lab work reviewed - creatinine and WBC within normal limits. - CT A/P personally reviewed and noted suprapubic catheter in bladder, air noted in bladder which could represent infection or more likely recent exchange of suprapubic catheter. - Urine and blood cultures are pending. Currently on IV Vancomycin and Zosyn. - Suprapubic catheter changed in ER, patent and draining appropriately. - Follow urine and blood cultures and treat as indicated. - No acute intervention warranted at this time. - Continue SP tube management and changes as previously scheduled. - Continue supportive care, antibiotics, and management per primary service. - Patient can keep follow-up with urology as an outpatient. - will sign off. History of Present Illness Reason for Consultation: Recurrent UTI Requesting Physician: Dr. 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 Patient is known to our service. 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 He presented to [facility] with generalized weakness and nausea. Of note, he was recently hospitalized at [facility] for MRSA of his Mohs surgical site, was treated with Vancomycin and discharged on Doxycycline. He was afebrile on arrival. Lab work notable for a Lactate of 3.3. Creatinine was within normal limits and no leukocytosis. UA on admission showed 3+ leukocytes, >30 WBC, 0-4 RBC, 20-30 epithelials, budding yeast, and negative for bacteria and nitrates. His suprapubic catheter was changed in the ER. ER course included IV fluids, Acetaminophen, Vancomycin, and Ondansetron. CT A/P personally reviewed and noted perinephric stranding bilaterally, suprapubic catheter in bladder, air noted in bladder which could represent infection or more likely recent exchange of suprapubic catheter. He was admitted to hospital medicine service. Urology consulted for recurrent UTI. Patient seen and examined at bedside this morning. He is resting in bed, arouses easily to his name. No acute complaints at this time. Reports generally feeling better today, though tired and weak. He denies abdominal, flank or suprapubic pain. Suprapubic catheter patent and draining clear yellow urine. Denies nausea, vomiting, fever or chills at this time. Allergies Allergy/AdvReac Type Severity Reaction Status Date / Time No Known Allergies Allergy Verified 04/14/22 18:32 Home Medications Medication Instructions Recorded Confirmed Type ascorbic acid (vitamin C) 500 mg 500 mg PO BID 08/10/21 04/14/22 History tablet (Vitamin C) cholecalciferol (vitamin D3) 50 50 mcg PO QAM 08/10/21 04/14/22 History mcg (2,000 unit) tablet (Vitamin D3) diphenoxylate-atropine 2.5 1 tab PO DAILY PRN Diarrhea 08/10/21 04/14/22 History mg-0.025 mg tablet (Lomotil) estradiol 2 mg tablet 2 mg PO QAM 08/10/21 04/14/22 History leuprolide acetate (6 month) 45 mg 45 mg IM DIRECTED 08/10/21 04/14/22 History intramuscular syringe kit (Lupron Depot) metoprolol succinate 25 mg 25 mg PO QAM 08/10/21 04/14/22 History tablet,extended release 24 hr prednisone 5 mg tablet 5 mg PO BID 08/10/21 04/14/22 History aspirin 81 mg tablet,delayed 81 mg PO Q OTHER DAY 11/05/21 04/14/22 History release abiraterone 500 mg tablet (Zytiga) 1,000 mg PO DAILYBB 04/14/22 04/14/22 History atorvastatin 40 mg tablet 40 mg PO DAILY 04/14/22 04/14/22 History calcium citrate 200 mg (950 mg) 200 mg PO DAILY 04/14/22 04/14/22 History tablet coenzyme Q10 100 mg capsule 100 mg PO DAILY 04/14/22 04/14/22 History (CoQ-10) cranberry extract 425 mg capsule 425 mg PO BID 04/14/22 04/14/22 History (Cranberry Juice Powder) doxycycline hyclate 100 mg capsule 100 mg PO BID 04/14/22 04/14/22 History famotidine 10 mg tablet (Pepcid AC) 10 mg PO HS PRN Gastric Reflux 04/14/22 04/14/22 History magnesium 143 mg PO HS 04/14/22 04/14/22 History magnesium hydroxide 400 mg/5 mL 15 ml PO DAILY PRN Constipation 04/14/22 04/14/22 History oral suspension (Milk of Magnesia) methenamine hippurate 1 gram tablet 1 g PO BID 04/14/22 04/14/22 History pkmfjzjnarvb-ttvoczvu-hmvjte tablet 1 tab PO DAILY 04/14/22 04/14/22 History mupirocin 2 % topical ointment 1 applic topical DAILY 04/14/22 04/14/22 History nitrofurantoin macrocrystal 50 mg 500 mg PO BID 04/14/22 04/14/22 History capsule sulfamethoxazole 800 1 tab PO BID 04/14/22 04/14/22 History mg-trimethoprim 160 mg tablet zinc 50 mg capsule 50 mg PO DAILY 04/14/22 04/14/22 History Patient History Medical History (Updated 04/15/22 @ 11:47 by GERARD Armas) Acute kidney injury Adrenal insufficiency 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 Liu) and also chepe Dolan History of basal cell carcinoma (BCC) History of CVA (cerebrovascular accident) Aug 2021 > [facility] > residual numbness left hand > follows with neuro History of kidney stones Hx of sepsis October 2020 from infection of the urinary sphincter > sphincter then removed Insomnia Interstitial lung disease Prostate cancer 2001 > radiation/chemo, now just Zytiga daily Suprapubic catheter in place Surgical History H/O radical prostatectomy History of adenoidectomy History of cataract surgery RT History of colonoscopy History of tonsillectomy History of tooth extraction History of urinary tract surgery urinary sphincter placed approx year after prostate surgery > since removed Family History Mother Diabetes Father Diabetes Social History Smoking Status: Never smoker Second Hand Exposure: No; Hx Alcohol Use: No Hx Substance Use: No Preferred Language: Bruneian Communication Ability: Effective Canary Raiser Required: No Beliefs That Will Affect Care: None Current Living Situation: Family Current Living Situation Comment: lives with daughter's family and his Feels Safe at Home: Yes Safety Concerns: Feels Safe At This Time Assistive Devices: Glasses and Walker Review of Systems Review of Systems: All systems reviewed & are unremarkable except as noted in HPI & below Physical Exam Constitutional: + thin; no acute distress Eyes: no scleral abnormality Respiratory: normal respiratory effort; no respiratory distress and no labored breathing Cardiovascular: Extremities: no pedal edema Gastrointestinal (Abdomen): Inspection/Auscultation: abdomen normal to inspection; abdomen not distended Percussion/Palpation: abdomen soft; abdomen nontender and no guarding Musculoskeletal: Head/Neck/Chest: normocephalic and head atraumatic Skin: Bandage over right cheek Neurologic: moves all extremities and awake Psychiatric: Orientation: alert and oriented to person Genitourinary: SP tube intact and draining clear yellow urine Results & Data ([facility]) Vital Signs (Past 12 Hours) Vital Signs Temp Pulse Pulse Resp BP Pulse Ox O2 Del Method 04/15/22 07:58 37.2 C 76 20 118/67 96 Room Air 04/15/22 03:00 37.4 C 112 H 18 128/75 92 04/15/22 01:10 85 04/14/22 22:03 88 04/14/22 23:30 Room Air 04/14/22 22:00 36.9 C 76 18 148/69 H 96 Room Air Results Complete Blood Count Results: RBC 3.32 M/uL (4.63-6.08) L 04/15/22 WBC 9.12 K/ul (4.8-10.8) 04/15/22 Hgb 10.8 g/dl (14.0-18.0) L 04/15/22 Hct 32.9 % (40.1-51.0) L 04/15/22 Plt Count 257 K/uL (130-400) 04/15/22 Results BMP Results: Sodium 133 mmol/L (136-145) L 04/15/22 Potassium 3.5 mmol/L (3.5-5.1) 04/15/22 Chloride 104 mmol/L (98-107) 04/15/22 Carbon Dioxide 24 mmol/L (21-32) 04/15/22 Anion Gap 5 (3-11) 04/15/22 BUN 6 mg/dl (6-23) 04/15/22 Creatinine 0.90 mg/dl (0.6-1.4) 04/15/22 Glucose 101 mg/dl (70-99(Fasting)) H 04/15/22 PG Care Time/CCT Total # of Minutes Spent Total Time Spent with Patient: Total time spent is greater than 50% in coordination of care (as documented) at patient's floor/unit and/or counseling patient: Coding Level of Care Code 48928 Initial Inpt Care Lvl 2 Diagnoses Recurrent urinary tract infection N39.0 Suprapubic catheter Z93.59
--- NOTE | 2022-04-15 09:12 | Gastrointestinal Consultation ---
Date of Consultation April 15, 2022 Assessment & Plan (1) Nausea & vomitin81 year old male with history of prostate cancer s/p robotic prostatectomy, urinary incontinence w/ suprapubic catheter placed in 2020, CKD-3, diastolic congestive heart failure, atrial fibrillation on ASA who presents with abd pain, nausea/vomiting report of hematemesis, downtrending HGB but normal BUN. DDX discussed: esophagitis, mario-gamboa tear, PUD, gastritis vs other He is hesitant to undergo EGD after discussion of indication, risks/benefits. He prefers to continue conservative management unless he develops persistent melena, hematemesis or coffee ground emesis. No GI contraindication to clear liquids Would continue IV PPI for 48 hours Then PO PPI BID x 30 days No NSAIDs Ok to continue ASA Trend HGB Monitor and document output Transfuse PRN Thank you for allowing us to participate in the care of this patient. Please call with any acute changes, questions or concerns. Please see addendum below with additional recommendation from my supervising physician. Supervising Physician Co-Signing Physician Notes Attg add: I interviewed and examined pt, reviewed chart and labs. Pt on doxycycline, persistent nausea and vomiting initially non bloody than coffee grounds. On admit, hypertensive but tachy; BUN WNL; Hgb 13--> 10. Pt does not want EGD. I spoke to him abt this, also d/w his daughter. Likely Pill esophagitis, MW tear. Cont IV PPI and clears today. If hgb stable overnight, complete 48 hours of IV PPIgtt, and then dc on twice daily PPI for 2 mos. OK to cont ASA. Will sign off. Please reconsult us if pt wishes to proceed with EGD, or if he develops signs of persistent bleeding. History of Present Illness Reason for Consultation: blood in vomit Requesting Physician: Zachary Attending Physician: Gibson Sharma MD History of Present Illness 81 year old male with history of prostate cancer s/p robotic prostatectomy, urinary incontinence w/ suprapubic catheter placed in 2020, CKD-3, \diastolic congestive heart failure, atrial fibrillation on ASA who presents with abd pain, nausea/vomiting report of blood in emesis at home. Suggests he has been on some ABX, developed some UGI symptoms and had seen trace about of blood in his vomit. Suggests this last happened yesterday. Today, he notes he is feeling better, although tired/weak. Denies abd pain, nausea, vomiting. Moving bowels, last movement before arrival. Denies black or bloody stools. Lactid acid 3.3 --> 1.8 HGB 13 --> 10.7 INR 1.4 TB 0.9 AST 40 ALT 24 ALKP 118 Lipase 25 CTAP 2021: There are mildly distended loops of small bowel but no yue dilation to suggest small bowel obstruction. There is a small hiatal hernia with liquid contents in the esophagus compatible with recent vomiting.Reticular opacities in the lung bases may represent interstitial lung disease. KUB 2021: No definite evidence of small bowel obstruction, although a 32 mm loop of small bowel is noted in the right abdomen. Attention on CT abdomen pelvis is recommended. Allergies Allergy/AdvReac Type Severity Reaction Status Date / Time No Known Allergies Allergy Verified 04/14/22 18:32 Home Medications Medication Instructions Recorded Confirmed Type ascorbic acid (vitamin C) 500 mg 500 mg PO BID 08/10/21 04/14/22 History tablet (Vitamin C) cholecalciferol (vitamin D3) 50 50 mcg PO QAM 08/10/21 04/14/22 History mcg (2,000 unit) tablet (Vitamin D3) diphenoxylate-atropine 2.5 1 tab PO DAILY PRN Diarrhea 08/10/21 04/14/22 History mg-0.025 mg tablet (Lomotil) estradiol 2 mg tablet 2 mg PO QAM 08/10/21 04/14/22 History leuprolide acetate (6 month) 45 mg 45 mg IM DIRECTED 08/10/21 04/14/22 History intramuscular syringe kit (Lupron Depot) metoprolol succinate 25 mg 25 mg PO QAM 08/10/21 04/14/22 History tablet,extended release 24 hr prednisone 5 mg tablet 5 mg PO BID 08/10/21 04/14/22 History aspirin 81 mg tablet,delayed 81 mg PO Q OTHER DAY 11/05/21 04/14/22 History release abiraterone 500 mg tablet (Zytiga) 1,000 mg PO DAILYBB 04/14/22 04/14/22 History atorvastatin 40 mg tablet 40 mg PO DAILY 04/14/22 04/14/22 History calcium citrate 200 mg (950 mg) 200 mg PO DAILY 04/14/22 04/14/22 History tablet coenzyme Q10 100 mg capsule 100 mg PO DAILY 04/14/22 04/14/22 History (CoQ-10) cranberry extract 425 mg capsule 425 mg PO BID 04/14/22 04/14/22 History (Cranberry Juice Powder) doxycycline hyclate 100 mg capsule 100 mg PO BID 04/14/22 04/14/22 History famotidine 10 mg tablet (Pepcid AC) 10 mg PO HS PRN Gastric Reflux 04/14/22 04/14/22 History magnesium 143 mg PO HS 04/14/22 04/14/22 History magnesium hydroxide 400 mg/5 mL 15 ml PO DAILY PRN Constipation 04/14/22 04/14/22 History oral suspension (Milk of Magnesia) methenamine hippurate 1 gram tablet 1 g PO BID 04/14/22 04/14/22 History wtrdiycjppbm-aujamlaa-mudsjf tablet 1 tab PO DAILY 04/14/22 04/14/22 History mupirocin 2 % topical ointment 1 applic topical DAILY 04/14/22 04/14/22 History nitrofurantoin macrocrystal 50 mg 500 mg PO BID 04/14/22 04/14/22 History capsule sulfamethoxazole 800 1 tab PO BID 04/14/22 04/14/22 History mg-trimethoprim 160 mg tablet zinc 50 mg capsule 50 mg PO DAILY 04/14/22 04/14/22 History Patient History Medical History (Updated 04/15/22 @ 11:47 by GERARD Armas) Acute kidney injury Adrenal insufficiency 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 > follows with neuro History of kidney stones Hx of sepsis October 2020 from infection of the urinary sphincter > sphincter then removed Insomnia Interstitial lung disease Prostate cancer 2001 > radiation/chemo, now just Zytiga daily Suprapubic catheter in place Surgical History H/O radical prostatectomy History of adenoidectomy History of cataract surgery RT History of colonoscopy History of tonsillectomy History of tooth extraction History of urinary tract surgery urinary sphincter placed approx year after prostate surgery > since removed Family History Mother Diabetes Father Diabetes Social History Smoking Status: Never smoker Second Hand Exposure: No; Hx Alcohol Use: No Hx Substance Use: No Preferred Language: Yi Communication Ability: Effective Lead Programmer Analyst Required: No Beliefs That Will Affect Care: None Current Living Situation: Family Current Living Situation Comment: lives with daughter's family and his Feels Safe at Home: Yes Safety Concerns: Feels Safe At This Time Assistive Devices: Glasses and Walker Review of Systems Review of Systems: All systems reviewed & are unremarkable except as noted in HPI & below Physical Exam Constitutional: WD/WN, vitals as above Neck: trachea midline; no tracheal deviation Respiratory: normal respiratory effort; no respiratory distress Cardiovascular: Rate/Rhythm: regular rate Gastrointestinal (Abdomen): normal bowel sounds, soft, nontender, no hepatosplenomegaly Skin: no rashes, warm and dry Results & Data ([facility]) Vital Signs (Past 12 Hours) Vital Signs Temp Pulse Pulse Resp BP Pulse Ox O2 Del Method 04/15/22 07:58 37.2 C 76 20 118/67 96 Room Air 04/15/22 03:00 37.4 C 112 H 18 128/75 92 04/15/22 01:10 85 04/14/22 22:03 88 04/14/22 23:30 Room Air 04/14/22 22:00 36.9 C 76 18 148/69 H 96 Room Air Laboratory Results 04/15/22 04/15/22 04/14/22 Range/Units 05:38 05:38 17:43 WBC 9.12 (4.8-10.8) K/ul RBC 3.32 L (4.63-6.08) M/uL Hgb 10.7 L (14.0-18.0) g/dl Hct 31.5 L (40.1-51.0) % MCV 94.9 (80.0-100.0) fL MCH 32.2 (25.0-34.0) pg MCHC 34.0 (32.0-36.0) g/dL RDW Std Deviation 44.8 (36.4-46.3) fL RDW Coeff of [place] 12.9 (11.5-14.5) % Plt Count 257 (130-400) K/uL MPV 9.5 (9.4-12.4) fL Immature Gran % (Auto) 0.2 % Neut % (Auto) 73.6 % Lymph % (Auto) 9.1 % [place] % (Auto) 11.5 % Eos % (Auto) 5.2 % Baso % (Auto) 0.4 % Neut # (Auto) 6.71 H (1.4-6.5) K/uL Lymph # (Auto) 0.83 L (1.2-3.4) K/uL [place] # (Auto) 1.05 H (0.24-0.82) K/uL Eos # (Auto) 0.47 (0-0.50) K/uL Baso # (Auto) 0.04 (0-0.2) K/uL Immature Gran # (Auto) 0.02 (0.00-0.02) K/uL PT (9.0-12.0) Seconds INR (0.9-1.1) Sodium 133 L (136-145) mmol/L Potassium 3.5 (3.5-5.1) mmol/L Chloride 104 (98-107) mmol/L Carbon Dioxide 24 (21-32) mmol/L Anion Gap 5 (3-11) BUN 6 (6-23) mg/dl Creatinine 0.90 (0.6-1.4) mg/dl Est Cr Clr Drug Dosing 59.1 ml/min Est GFR ( Amer) 91.9 ml/min Est GFR (Non-Af Amer) 79.3 ml/min BUN/Creatinine Ratio 6.7 L (10-20) Glucose 101 H (70-99(Fasting)) mg/dl POC Glucose (70-99) mg/dl Lactate 1.8 (0.4-2.0) mmol/L Calcium 7.4 L (8.5-10.1) mg/dl Magnesium 1.6 L (1.7-2.4) mg/dl Total Bilirubin (0.2-1.0) mg/dl AST (13-39) U/L ALT (7-52) U/L Alkaline Phosphatase (34-104) U/L Troponin I High Sens (0-20) pg/ml Total Protein (6.0-8.3) gm/dl Albumin (3.4-5.0) gm/dl Globulin (2.5-4.0) gm/dl Albumin/Globulin Ratio (0.9-2) Lipase (11-82) U/L Procalcitonin (0-0.5) ng/ml TSH (0.300-4.500) uIu/ml Free T4 (0.61-1.60) ng/dl Urine Color Urine Appearance (Clear) Urine pH (4.5-7.5) Ur Specific [place] (1.000-1.030) Urine Protein (Negative) Urine Glucose (UA) (Negative) Urine Ketones (Negative) Urine Blood (Negative) Urine Nitrite (Negative) Urine Bilirubin (Negative) Urine Urobilinogen (Negative) Ur Leukocyte Esterase (Negative) Urine WBC (Auto) (0-5) /hpf Urine RBC (Auto) (0-4) /hpf U Hyaline Cast (Auto) (0-5) /lpf U Epithel Cells (Auto) (0-5) /lpf Urine Bacteria (Auto) (Negative) Ur Renal Epithelial Cell (0-5) /lpf Urine Crystals Urine Yeast (None Prsent) SARS-CoV-2, RNA, NAAT (NEGATIVE) 04/14/22 04/14/22 04/14/22 Range/Units 16:33 15:43 15:34 WBC (4.8-10.8) K/ul RBC (4.63-6.08) M/uL Hgb (14.0-18.0) g/dl Hct (40.1-51.0) % MCV (80.0-100.0) fL MCH (25.0-34.0) pg MCHC (32.0-36.0) g/dL RDW Std Deviation (36.4-46.3) fL RDW Coeff of [place] (11.5-14.5) % Plt Count (130-400) K/uL MPV (9.4-12.4) fL Immature Gran % (Auto) % Neut % (Auto) % Lymph % (Auto) % [place] % (Auto) % Eos % (Auto) % Baso % (Auto) % Neut # (Auto) (1.4-6.5) K/uL Lymph # (Auto) (1.2-3.4) K/uL [place] # (Auto) (0.24-0.82) K/uL Eos # (Auto) (0-0.50) K/uL Baso # (Auto) (0-0.2) K/uL Immature Gran # (Auto) (0.00-0.02) K/uL PT (9.0-12.0) Seconds INR (0.9-1.1) Sodium (136-145) mmol/L Potassium (3.5-5.1) mmol/L Chloride (98-107) mmol/L Carbon Dioxide (21-32) mmol/L Anion Gap (3-11) BUN (6-23) mg/dl Creatinine (0.6-1.4) mg/dl Est Cr Clr Drug Dosing ml/min Est GFR ( Amer) ml/min Est GFR (Non-Af Amer) ml/min BUN/Creatinine Ratio (10-20) Glucose (70-99(Fasting)) mg/dl POC Glucose 90 (70-99) mg/dl Lactate (0.4-2.0) mmol/L Calcium (8.5-10.1) mg/dl Magnesium (1.7-2.4) mg/dl Total Bilirubin (0.2-1.0) mg/dl AST (13-39) U/L ALT (7-52) U/L Alkaline Phosphatase (34-104) U/L Troponin I High Sens (0-20) pg/ml Total Protein (6.0-8.3) gm/dl Albumin (3.4-5.0) gm/dl Globulin (2.5-4.0) gm/dl Albumin/Globulin Ratio (0.9-2) Lipase (11-82) U/L Procalcitonin (0-0.5) ng/ml TSH (0.300-4.500) uIu/ml Free T4 (0.61-1.60) ng/dl Urine Color Yellow Urine Appearance Turbid A (Clear) Urine pH 8.5 H (4.5-7.5) Ur Specific [place] 1.011 (1.000-1.030) Urine Protein Trace H (Negative) Urine Glucose (UA) Negative (Negative) Urine Ketones Negative (Negative) Urine Blood Negative (Negative) Urine Nitrite Negative (Negative) Urine Bilirubin Negative (Negative) Urine Urobilinogen Negative (Negative) Ur Leukocyte Esterase 3+ H (Negative) Urine WBC (Auto) >30 H (0-5) /hpf Urine RBC (Auto) 0-4 (0-4) /hpf U Hyaline Cast (Auto) 1-5 (0-5) /lpf U Epithel Cells (Auto) 20-30 H (0-5) /lpf Urine Bacteria (Auto) Negative (Negative) Ur Renal Epithelial Cell 0-5 (0-5) /lpf Urine Crystals Not Reportable Urine Yeast Budding w/ Hyphae A (None Prsent) SARS-CoV-2, RNA, NAAT NEGATIVE (NEGATIVE) 04/14/22 04/14/22 04/14/22 Range/Units 15:32 15:32 15:27 WBC (4.8-10.8) K/ul RBC (4.63-6.08) M/uL Hgb (14.0-18.0) g/dl Hct (40.1-51.0) % MCV (80.0-100.0) fL MCH (25.0-34.0) pg MCHC (32.0-36.0) g/dL RDW Std Deviation (36.4-46.3) fL RDW Coeff of [place] (11.5-14.5) % Plt Count (130-400) K/uL MPV (9.4-12.4) fL Immature Gran % (Auto) % Neut % (Auto) % Lymph % (Auto) % [place] % (Auto) % Eos % (Auto) % Baso % (Auto) % Neut # (Auto) (1.4-6.5) K/uL Lymph # (Auto) (1.2-3.4) K/uL [place] # (Auto) (0.24-0.82) K/uL Eos # (Auto) (0-0.50) K/uL Baso # (Auto) (0-0.2) K/uL Immature Gran # (Auto) (0.00-0.02) K/uL PT 14.2 H (9.0-12.0) Seconds INR 1.4 H (0.9-1.1) Sodium (136-145) mmol/L Potassium (3.5-5.1) mmol/L Chloride (98-107) mmol/L Carbon Dioxide (21-32) mmol/L Anion Gap (3-11) BUN (6-23) mg/dl Creatinine (0.6-1.4) mg/dl Est Cr Clr Drug Dosing ml/min Est GFR ( Amer) ml/min Est GFR (Non-Af Amer) ml/min BUN/Creatinine Ratio (10-20) Glucose (70-99(Fasting)) mg/dl POC Glucose (70-99) mg/dl Lactate 3.3 H* (0.4-2.0) mmol/L Calcium (8.5-10.1) mg/dl Magnesium (1.7-2.4) mg/dl Total Bilirubin (0.2-1.0) mg/dl AST (13-39) U/L ALT (7-52) U/L Alkaline Phosphatase (34-104) U/L Troponin I High Sens (0-20) pg/ml Total Protein (6.0-8.3) gm/dl Albumin (3.4-5.0) gm/dl Globulin (2.5-4.0) gm/dl Albumin/Globulin Ratio (0.9-2) Lipase (11-82) U/L Procalcitonin 0.25 (0-0.5) ng/ml TSH (0.300-4.500) uIu/ml Free T4 (0.61-1.60) ng/dl Urine Color Urine Appearance (Clear) Urine pH (4.5-7.5) Ur Specific [place] (1.000-1.030) Urine Protein (Negative) Urine Glucose (UA) (Negative) Urine Ketones (Negative) Urine Blood (Negative) Urine Nitrite (Negative) Urine Bilirubin (Negative) Urine Urobilinogen (Negative) Ur Leukocyte Esterase (Negative) Urine WBC (Auto) (0-5) /hpf Urine RBC (Auto) (0-4) /hpf U Hyaline Cast (Auto) (0-5) /lpf U Epithel Cells (Auto) (0-5) /lpf Urine Bacteria (Auto) (Negative) Ur Renal Epithelial Cell (0-5) /lpf Urine Crystals Urine Yeast (None Prsent) SARS-CoV-2, RNA, NAAT (NEGATIVE) 04/14/22 04/14/22 04/14/22 Range/Units 15:27 15:27 15:27 WBC 5.88 (4.8-10.8) K/ul RBC 4.07 L (4.63-6.08) M/uL Hgb 13.0 L (14.0-18.0) g/dl Hct 39.1 L (40.1-51.0) % MCV 96.1 (80.0-100.0) fL MCH 31.9 (25.0-34.0) pg MCHC 33.2 (32.0-36.0) g/dL RDW Std Deviation 44.6 (36.4-46.3) fL RDW Coeff of [place] 12.7 (11.5-14.5) % Plt Count 324 (130-400) K/uL MPV 9.8 (9.4-12.4) fL Immature Gran % (Auto) 0.7 % Neut % (Auto) 64.1 % Lymph % (Auto) 16.2 % [place] % (Auto) 12.4 % Eos % (Auto) 6.1 % Baso % (Auto) 0.5 % Neut # (Auto) 3.77 (1.4-6.5) K/uL Lymph # (Auto) 0.95 L (1.2-3.4) K/uL [place] # (Auto) 0.73 (0.24-0.82) K/uL Eos # (Auto) 0.36 (0-0.50) K/uL Baso # (Auto) 0.03 (0-0.2) K/uL Immature Gran # (Auto) 0.04 H (0.00-0.02) K/uL PT (9.0-12.0) Seconds INR (0.9-1.1) Sodium 132 L (136-145) mmol/L Potassium 3.8 (3.5-5.1) mmol/L Chloride 99 (98-107) mmol/L Carbon Dioxide 24 (21-32) mmol/L Anion Gap 9 (3-11) BUN 7 (6-23) mg/dl Creatinine 0.98 (0.6-1.4) mg/dl Est Cr Clr Drug Dosing 52.4 ml/min Est GFR ( Amer) 82.9 ml/min Est GFR (Non-Af Amer) 71.5 ml/min BUN/Creatinine Ratio 7.1 L (10-20) Glucose 94 (70-99(Fasting)) mg/dl POC Glucose (70-99) mg/dl Lactate (0.4-2.0) mmol/L Calcium 8.7 (8.5-10.1) mg/dl Magnesium 1.7 (1.7-2.4) mg/dl Total Bilirubin 0.9 (0.2-1.0) mg/dl AST 40 H (13-39) U/L ALT 24 (7-52) U/L Alkaline Phosphatase 118 H (34-104) U/L Troponin I High Sens 21.2 H (0-20) pg/ml Total Protein 6.1 (6.0-8.3) gm/dl Albumin 2.9 L (3.4-5.0) gm/dl Globulin 3.2 (2.5-4.0) gm/dl Albumin/Globulin Ratio 0.9 (0.9-2) Lipase 25 (11-82) U/L Procalcitonin (0-0.5) ng/ml TSH 13.331 H (0.300-4.500) uIu/ml Free T4 0.93 (0.61-1.60) ng/dl Urine Color Urine Appearance (Clear) Urine pH (4.5-7.5) Ur Specific [place] (1.000-1.030) Urine Protein (Negative) Urine Glucose (UA) (Negative) Urine Ketones (Negative) Urine Blood (Negative) Urine Nitrite (Negative) Urine Bilirubin (Negative) Urine Urobilinogen (Negative) Ur Leukocyte Esterase (Negative) Urine WBC (Auto) (0-5) /hpf Urine RBC (Auto) (0-4) /hpf U Hyaline Cast (Auto) (0-5) /lpf U Epithel Cells (Auto) (0-5) /lpf Urine Bacteria (Auto) (Negative) Ur Renal Epithelial Cell (0-5) /lpf Urine Crystals Urine Yeast (None Prsent) SARS-CoV-2, RNA, NAAT (NEGATIVE) (1) Nausea & vomiting Vomiting type: unspecified Qualified Code(s): R11.2 - Nausea with vomiting, unspecified
[2022-04-15] MEDS: METOPROLOL SUCC 25MG EXT REL TAB PO SCH (09:52)
[2022-04-15] MEDS: MUPIROCIN 2% OINT 22 GM TUBE TOP SCH (10:05)
[2022-04-15] MEDS: CEROVITE ADV FORMULA TAB PO SCH (11:00)
[2022-04-15] MEDS: ATORVASTATIN 40 MG TAB PO SCH (11:00)
[2022-04-15] MEDS: estradioL 1 MG TAB PO SCH (11:00)
[2022-04-15] MEDS: CHOLECALCIFEROL 1,000 UNITS 25 MCG TAB PO SCH (11:00)
[2022-04-15] MEDS: ASCORBIC ACID 500 MG TAB PO SCH ×2 (11:01→20:24)
[2022-04-15 11:30] LABS: Hematocrit (blood only) 32.9 % (40.1-51.0); Hemoglobin 10.8 g/dl (14.0-18.0)
--- NOTE | 2022-04-15 15:20 | Hospitalist Progress Note ---
Date of Service April 15, 2022 Assessment & Plan (1) Sepsis: Plan: Patient presented with lactic acidosis and lethargy. Source of infection most likely UTI Mohs surgical site- slight erythema present; no purulent drainage Urinalysis shows 3+ leukocyte esterase with WBCs and budding hyphae. Plan: -Continue on Vanco and Zosyn for now. -We will follow-up on the blood culture and urine culture. Patient's suprapubic catheter was exchanged in the ED. -Continue wound care for Moh surgical site (2) Hematemesis: Plan: Patient reported 2 episode of hematemesis prior to admission. His hemoglobin on 04/10/2022 as per epic was 11.4. Hemoglobin is stable at 10.8. Patient refused endoscopy by GI. Plan is to continue IV PPI for 2 days and switch to oral PPI for next 30 days. Plan 3. History of prostate cancer: s/p proctectomy. Lupron shots , zytiga and prednisone. Holding prednisone for now seems have not taken since discharge from [facility]. Suprapubic catheter exchanged in ED 4. History of atrial fibrillation: On metoprolol succinate, with holding parameters. As per the EPIC notes, declined Coumadin in the past. Holding aspirin for GI bleed. 5. History of chronic diastolic congestive heart failure: 6. Chronic kidney disease stage III: Creatinine Stable 7. History of interstitial lung disease: Will monitor. 8. History of subdural hematoma in the past. 9. Deep venous thrombosis prophylaxis: Sequential compression devices for now. Admission and Anticipated Discharge Date Admission Date: April 14, 2022 Subjective Patient seen and examined at bedside. Patient is lying in the bed comfortably; not in any distress. He denies any vomiting today or abdominal pain. He has been afebrile since admission. Review of Systems Review of Systems: All systems reviewed & are unremarkable except as noted in Subjective Physical Exam Physical Exam: GENERAL: The patient is of moderate build, not in acute distress. HEENT: Pupils equal, round, and reactive to light. Oral mucosa moist. NECK: No JVD, no neck masses. CARDIOVASCULAR: S1 and S2 heard. Regular rate and rhythm. No murmur, no gallop. RESPIRATORY SYSTEM: Normal AP diameter. No accessory muscle use. No wheezing, no crackles. ABDOMEN: Soft, bowel sounds present, nontender, no distention. CENTRAL NERVOUS SYSTEM: Alert and oriented x3. Speech is clear. No facial droop. Insight is okay. Obeys simple commands. Moves extremities. EXTREMITIES: No edema, no erythema. Results & Data Results & Data ([facility]) Vital Signs (Past 12 Hours) Vital Signs Temp Pulse Pulse Resp BP Pulse Ox O2 Del Method 04/15/22 11:54 36.4 C L 76 18 117/71 95 Room Air 04/15/22 06:00 81 04/15/22 07:58 37.2 C 76 20 118/67 96 Room Air Diagnostic Findings Laboratory Results WBC 9.12 K/ul (4.8-10.8) 04/15/22 05:38 RBC 3.32 M/uL (4.63-6.08) L 04/15/22 05:38 Hgb 10.8 g/dl (14.0-18.0) L 04/15/22 11:05 Hct 32.9 % (40.1-51.0) L 04/15/22 11:05 MCV 94.9 fL (80.0-100.0) 04/15/22 05:38 MCH 32.2 pg (25.0-34.0) 04/15/22 05:38 MCHC 34.0 g/dL (32.0-36.0) 04/15/22 05:38 RDW Std Deviation 44.8 fL (36.4-46.3) 04/15/22 05:38 RDW Coeff of [place] 12.9 % (11.5-14.5) 04/15/22 05:38 Plt Count 257 K/uL (130-400) 04/15/22 05:38 MPV 9.5 fL (9.4-12.4) 04/15/22 05:38 Immature Gran % (Auto) 0.2 % 04/15/22 05:38 Neut % (Auto) 73.6 % 04/15/22 05:38 Lymph % (Auto) 9.1 % 04/15/22 05:38 [place] % (Auto) 11.5 % 04/15/22 05:38 Eos % (Auto) 5.2 % 04/15/22 05:38 Baso % (Auto) 0.4 % 04/15/22 05:38 Neut # (Auto) 6.71 K/uL (1.4-6.5) H 04/15/22 05:38 Lymph # (Auto) 0.83 K/uL (1.2-3.4) L 04/15/22 05:38 [place] # (Auto) 1.05 K/uL (0.24-0.82) H 04/15/22 05:38 Eos # (Auto) 0.47 K/uL (0-0.50) 04/15/22 05:38 Baso # (Auto) 0.04 K/uL (0-0.2) 04/15/22 05:38 Immature Gran # (Auto) 0.02 K/uL (0.00-0.02) 04/15/22 05:38 PT 14.2 Seconds (9.0-12.0) H 04/14/22 15:32 INR 1.4 (0.9-1.1) H 04/14/22 15:32 Sodium 133 mmol/L (136-145) L 04/15/22 05:38 Potassium 3.5 mmol/L (3.5-5.1) 04/15/22 05:38 Chloride 104 mmol/L (98-107) 04/15/22 05:38 Carbon Dioxide 24 mmol/L (21-32) 04/15/22 05:38 Anion Gap 5 (3-11) 04/15/22 05:38 BUN 6 mg/dl (6-23) 04/15/22 05:38 Creatinine 0.90 mg/dl (0.6-1.4) 04/15/22 05:38 Est Cr Clr Drug Dosing 59.1 ml/min 04/15/22 05:38 Est GFR ( Amer) 91.9 ml/min 04/15/22 05:38 Est GFR (Non-Af Amer) 79.3 ml/min 04/15/22 05:38 BUN/Creatinine Ratio 6.7 (10-20) L 04/15/22 05:38 Glucose 101 mg/dl (70-99(Fasting)) H 04/15/22 05:38 POC Glucose 90 mg/dl (70-99) 04/14/22 15:43 Lactate 1.8 mmol/L (0.4-2.0) 04/14/22 17:43 Calcium 7.4 mg/dl (8.5-10.1) L 04/15/22 05:38 Magnesium 1.6 mg/dl (1.7-2.4) L 04/15/22 05:38 Total Bilirubin 0.9 mg/dl (0.2-1.0) 04/14/22 15:27 AST 40 U/L (13-39) H 04/14/22 15:27 ALT 24 U/L (7-52) 04/14/22 15:27 Alkaline Phosphatase 118 U/L (34-104) H 04/14/22 15:27 Troponin I High Sens 21.2 pg/ml (0-20) H 04/14/22 15:27 Total Protein 6.1 gm/dl (6.0-8.3) 04/14/22 15: Albumin 2.9 gm/dl (3.4-5.0) L 04/14/22 15:27 Globulin 3.2 gm/dl (2.5-4.0) 04/14/22 15:27 Albumin/Globulin Ratio 0.9 (0.9-2) 04/14/22 15:27 Lipase 25 U/L (11-82) 04/14/22 15:27 Procalcitonin 0.25 ng/ml (0-0.5) 04/14/22 15:27 TSH 13.331 uIu/ml (0.300-4.500) H 04/14/22 15:27 Free T4 0.93 ng/dl (0.61-1.60) 04/14/22 15:27 Urine Color Yellow 04/14/22 16:33 Urine Appearance Turbid (Clear) A 04/14/22 16:33 Urine pH 8.5 (4.5-7.5) H 04/14/22 16:33 Ur Specific [place] 1.011 (1.000-1.030) 04/14/22 16:33 Urine Protein Trace (Negative) H 04/14/22 16:33 Urine Glucose (UA) Negative (Negative) 04/14/22 16:33 Urine Ketones Negative (Negative) 04/14/22 16:33 Urine Blood Negative (Negative) 04/14/22 16:33 Urine Nitrite Negative (Negative) 04/14/22 16:33 Urine Bilirubin Negative (Negative) 04/14/22 16:33 Urine Urobilinogen Negative (Negative) 04/14/22 16:33 Ur Leukocyte Esterase 3+ (Negative) H 04/14/22 16:33 Urine WBC (Auto) >30 /hpf (0-5) H 04/14/22 16:33 Urine RBC (Auto) 0-4 /hpf (0-4) 04/14/22 16:33 U Hyaline Cast (Auto) 1-5 /lpf (0-5) 04/14/22 16:33 U Epithel Cells (Auto) 20-30 /lpf (0-5) H 04/14/22 16:33 Urine Bacteria (Auto) Negative (Negative) 04/14/22 16:33 Ur Renal Epithelial Cell 0-5 /lpf (0-5) 04/14/22 16:33 Urine Crystals Not Reportable 04/14/22 16:33 Urine Yeast Budding w/ Hyphae (None Prsent) A 04/14/22 16:33 SARS-CoV-2, RNA, NAAT NEGATIVE (NEGATIVE) 04/14/22 15:34 Impressions Chest X-Ray 04/14/22 15:01 XR chest 1V portable CLINICAL HISTORY: weakness TECHNIQUE: Single frontal radiograph of the chest was obtained. Comparison: None available at the time of this dictation. FINDINGS: No lines and tubes are seen. Calcified aortic knob is seen. Prominence and cephalization of the vasculature is seen. No evidence of pleural effusion or pneumothorax. IMPRESSION: Mild pulmonary edema. ACT 112: Negative or not required by law. Electronically signed by: Dieudonne García M.D. 04/14/2022 5:04 PM KUB X-Ray 04/14/22 15:01 XR KUB/Abdomen 1 view CLINICAL HISTORY: vomiting, weak TECHNIQUE: 1 view of the abdomen was obtained. Comparison: None available at the time of this dictation. FINDINGS: Surgical clips are seen in the pelvis. The osseous structures are grossly unremarkable. There is a mildly distended loop of small bowel measuring 32 mm in diameter. A moderate amount of stool is noted within the large bowel. IMPRESSION: No definite evidence of small bowel obstruction, although a 32 mm loop of small bowel is noted in the right abdomen. Attention on CT abdomen pelvis is recommended. ACT 112: Negative or not required by law. Electronically signed by: Dieudonne García M.D. 04/14/2022 5:04 PM Abdomen/Pelvis CT 04/14/22 16:18 CT abd pelvis wo con CLINICAL HISTORY: vomiting, weak TECHNIQUE: Helical axial images of the abdomen and pelvis were obtained. Automated dose lowering techniques and/or adjustment according to patient size were utilized for this exam. This exam was performed without intravenous contrast. CT DOSE: 1529.17 mGy.cm COMPARISON: None available at the time of this dictation. FINDINGS: Lower chest: Peripheral reticular interstitial changes and bronchiectasis are seen. Liver: Unremarkable. No focal lesions are seen. Gallbladder and biliary tree: No calcified gallstones. Normal caliber wall. No intra- or extrahepatic biliary ductal dilation. Pancreas: Unremarkable, no focal lesions. Spleen: Unremarkable. Adrenals: Unremarkable. Kidneys and ureters: Perinephric stranding is noted bilaterally. Bladder: A suprapubic catheter is seen. The bladder is decompressed. Reproductive organs: Surgical clips are seen, patient may be status post prostatectomy. Bowel: There is a small hiatal hernia. A fluid-filled esophagus is noted. There are a few loops of distended small bowel measuring up to 30 mm in diameter, with no evidence of transition point or significant dilation. Lymph nodes Retroperitoneal: Unremarkable. Pelvic: Few calcifications are noted in the pelvic sidewall. Mesenteric: Unremarkable. Peritoneum: Normal. Vessels: Atherosclerotic calcifications are seen. Abdominal wall: Unremarkable. Bones: Degenerative changes in the visualized spine. A blastic focus is noted in the vertebral body of L1 which may represent a bone island. IMPRESSION: 1. There are mildly distended loops of small bowel but no yue dilation to suggest small bowel obstruction. 2. There is a small hiatal hernia with liquid contents in the esophagus compatible with recent vomiting. 3. Reticular opacities in the lung bases may represent interstitial lung disease. ACT 112: Negative or not required by law. Electronically signed by: Dieudonne García M.D. 04/14/2022 5:[address] 04/14/22 16:18 CT head/brain wo con CLINICAL HISTORY: weak, vomiting Technique: Contiguous axial CT images of the head were acquired from the base of the skull to the vertex without intravenous contrast administration. Images were viewed in brain, subdural and bone windows. Automated dose lowering techniques and/or adjustment according to patient size were utilized for this exam. Comparison: None available at the time of this dictation. Findings: Exam is limited by patient motion. Areas of decreased attenuation are present in the periventricular and subcortical white matter bilaterally consistent with small vessel ischemic disease. Generalized cerebral atrophy with commensurate enlargement of the ventricles, sulci, and cisterns is also present. There is no acute intracranial hemorrhage or evidence of acute territorial infarction. No shift of the midline structures, mass effect, or extra-axial abnormalities are shown. Atherosclerotic calcifications are present in the intracranial segments of the internal carotid arteries. Calcifications are noted in the falx. Soft tissue thickening is in the left maxillary sinus. The orbits appear normal. There are no acute fractures of the calvaria or scalp swelling. Impression: No acute intracranial hemorrhage, no evidence of acute territorial infarction or other acute intracranial disease process. ACT 112: Negative or not required by law. Electronically signed by: Dieudonne García M.D. 04/14/2022 5:05 PM
[2022-04-15 18:17] LABS: Hematocrit (blood only) 31.6 % (40.1-51.0); Hemoglobin 10.5 g/dl (14.0-18.0)
[2022-04-15] MEDS: MAGNESIUM OXIDE 400 MG TAB PO SCH (20:24)
[2022-04-16] MEDS: PANTOprazole 40 MG in DEXTROSE 5% 100 ML IV SCH ×5 (00:23→20:33)
[2022-04-16] MEDS: VANCOMYCIN HCL 1,000 MG in SODIUM CHLORIDE 0.9% 250 ML IV SCH ×2 (01:49→20:56)
[2022-04-16] MEDS: PIPERACILLIN/TAZOBACTAM 3.375 GM in DEXTROSE 5% 100 ML IV SCH ×3 (04:57→22:51)
[2022-04-16 08:30] LABS: Basophils # (auto) 0.05 K/uL (0-0.2); Basophils % (auto) 0.9 %; Eosinophils # (auto) 0.68 K/uL (0-0.50); Eosinophils % (auto) 12.1 %; Hematocrit (blood only) 32.8 % (40.1-51.0); Hemoglobin 10.9 g/dl (14.0-18.0); Immature Granulocytes # (auto) 0.02 K/uL (0.00-0.02); Immature Granulocytes % (auto) 0.4 %; Lymphocytes # (auto) 0.75 K/uL (1.2-3.4); Lymphocytes % (auto) 13.3 %; Mean Corpuscular Hemoglobin 31.8 pg (25.0-34.0); Mean Corpuscular Hgb Conc 33.2 g/dL (32.0-36.0); Mean Corpuscular Volume 95.6 fL (80.0-100.0); Mean Platelet Volume 9.8 fL (9.4-12.4); Monocytes # (auto) 0.82 K/uL (0.24-0.82); Monocytes % (auto) 14.6 %; Neutrophils # (auto) 3.31 K/uL (1.4-6.5); Neutrophils % (auto) 58.7 %; Platelet Count 268 K/uL (130-400); RDW Standard Deviation 45.7 fL (36.4-46.3); Red Blood Count 3.43 M/uL (4.63-6.08); White Blood Count 5.63 K/ul (4.8-10.8)
[2022-04-16] MEDS: CEROVITE ADV FORMULA TAB PO SCH (08:56)
[2022-04-16] MEDS: ASCORBIC ACID 500 MG TAB PO SCH ×2 (08:56→20:33)
[2022-04-16] MEDS: CHOLECALCIFEROL 1,000 UNITS 25 MCG TAB PO SCH (08:56)
[2022-04-16] MEDS: METOPROLOL SUCC 25MG EXT REL TAB PO SCH (08:56)
[2022-04-16] MEDS: ATORVASTATIN 40 MG TAB PO SCH (08:56)
[2022-04-16] MEDS: estradioL 1 MG TAB PO SCH (08:57)
[2022-04-16] MEDS: MUPIROCIN 2% OINT 22 GM TUBE TOP SCH (08:57)
[2022-04-16 09:00] LABS: Albumin Globulin Ratio 0.9 (0.9-2); Albumin Level 2.3 gm/dl (3.4-5.0); BUN Creatinine Ratio 6.2 (10-20); Bilirubin,Total 0.8 mg/dl (0.2-1.0); C Reactive Protein 9.29 mg/dl (0-0.5); Calcium 7.5 mg/dl (8.5-10.1); Creatinine Clr Calc Pharmacy 56.2 ml/min; Est GFR (African American) 83.9 ml/min; Est GFR (Non-African American) 72.4 ml/min; Globulin 2.6 gm/dl (2.5-4.0); Potassium 3.1 mmol/L (3.5-5.1); Total Protein 4.9 gm/dl (6.0-8.3)
[2022-04-16] MEDS ORDERED: POTASSIUM CHLORIDE CRTAB 20 MEQ TABCR PO STA (10:40)
--- NOTE | 2022-04-16 14:27 | Hospitalist Progress Note ---
Date of Service April 16, 2022 Assessment & Plan (1) Sepsis: Plan: Patient presented with lactic acidosis and lethargy. Source of infection most likely UTI Mohs surgical site- slight erythema present; no purulent drainage Urinalysis shows 3+ leukocyte esterase with WBCs and budding hyphae. Urine culture [place] albicans/dubliniensis Plan: -Patient blood culture so far has been negative. Urine culture shows growth of [place] albicans/dubliniensis. The culture was sent from the previous suprapubic catheter. Catheter was changed. Will obtain EKG to review QTC as QTC on admission was 470. Consult infectious disease to direct therapy - Continue on current antibiotics for now till we have final culture. -Continue wound care for Moh surgical site (2) Hematemesis: Plan: Patient reported 2 episode of hematemesis prior to admission. His hemoglobin on 04/10/2022 as per [facility] was 11.4. Hemoglobin is stable at 10.8. Patient refused endoscopy by GI. Plan is to continue IV PPI for 2 days and switch to oral PPI for next 30 days. Plan 3. History of prostate cancer: s/p proctectomy. Lupron shots , zytiga and prednisone. Holding prednisone for now seems have not taken since discharge from [facility]. Suprapubic catheter exchanged in ED 4. History of atrial fibrillation: On metoprolol succinate, with holding parameters. As per the EPIC notes, declined Coumadin in the past. Holding aspirin for GI bleed. 5. History of chronic diastolic congestive heart failure: 6. Chronic kidney disease stage III: Creatinine Stable 7. History of interstitial lung disease: Will monitor. 8. History of subdural hematoma in the past. 9. Deep venous thrombosis prophylaxis: Sequential compression devices for now. Admission and Anticipated Discharge Date Admission Date: April 14, 2022 Subjective Patient seen and examined at bedside. He is comfortable; not in any distress. Suprapubic catheter in place; draining clear urine. Review of Systems Review of Systems: All systems reviewed & are unremarkable except as noted in Subjective Physical Exam Physical Exam: GENERAL: The patient is of moderate build, not in acute distress. HEENT: Mohs surgical site on right cheek; erythema and induration noted. No serosanguineous discharge. NECK: No JVD, no neck masses. CARDIOVASCULAR: S1 and S2 heard. Regular rate and rhythm. No murmur, no gallop. RESPIRATORY SYSTEM: Normal AP diameter. No accessory muscle use. No wheezing, no crackles. ABDOMEN: Soft, bowel sounds present, nontender, no distention. CENTRAL NERVOUS SYSTEM: Alert and oriented x3. Speech is clear. No facial harish op. Insight is okay. Obeys simple commands. Moves extremities. EXTREMITIES: No edema, no erythema. Results & Data Results & Data ([facility]) Vital Signs (Past 12 Hours) Vital Signs Temp Pulse Pulse Resp BP Pulse Ox O2 Del Method 04/16/22 11:15 36.9 C 66 16 137/46 L 97 Room Air 04/16/22 09:30 66 04/16/22 09:30 Room Air 04/16/22 07:26 36.8 C 84 16 145/66 H 97 Room Air 04/16/22 03:10 37.1 C 73 16 150/74 H 97 Room Air Laboratory Results Laboratory Results WBC 5.63 K/ul (4.8-10.8) 04/16/22 07:50 RBC 3.43 M/uL (4.63-6.08) L 04/16/22 07:50 Hgb 10.9 g/dl (14.0-18.0) L 04/16/22 07:50 Hct 32.8 % (40.1-51.0) L 04/16/22 07:50 MCV 95.6 fL (80.0-100.0) 04/16/22 07:50 MCH 31.8 pg (25.0-34.0) 04/16/22 07:50 MCHC 33.2 g/dL (32.0-36.0) 04/16/22 07:50 RDW Std Deviation 45.7 fL (36.4-46.3) 04/16/22 07:50 RDW Coeff of [place] 13.0 % (11.5-14.5) 04/16/22 07:50 Plt Count 268 K/uL (130-400) 04/16/22 07:50 MPV 9.8 fL (9.4-12.4) 04/16/22 07:50 Immature Gran % (Auto) 0.4 % 04/16/22 07:50 Neut % (Auto) 58.7 % 04/16/22 07:50 Lymph % (Auto) 13.3 % 04/16/22 07:50 [place] % (Auto) 14.6 % 04/16/22 07:50 Eos % (Auto) 12.1 % 04/16/22 07:50 Baso % (Auto) 0.9 % 04/16/22 07:50 Neut # (Auto) 3.31 K/uL (1.4-6.5) 04/16/22 07:50 Lymph # (Auto) 0.75 K/uL (1.2-3.4) L 04/16/22 07:50 [place] # (Auto) 0.82 K/uL (0.24-0.82) 04/16/22 07:50 Eos # (Auto) 0.68 K/uL (0-0.50) H 04/16/22 07:50 Baso # (Auto) 0.05 K/uL (0-0.2) 04/16/22 07:50 Immature Gran # (Auto) 0.02 K/uL (0.00-0.02) 04/16/22 07:50 ESR 44 mm/hr (0-20) H 04/16/22 07:50 PT 14.2 Seconds (9.0-12.0) H 04/14/22 15:32 INR 1.4 (0.9-1.1) H 04/14/22 15:32 Sodium 132 mmol/L (136-145) L 04/16/22 07:50 Potassium 3.1 mmol/L (3.5-5.1) L 04/16/22 07:50 Chloride 104 mmol/L (98-107) 04/16/22 07:50 Carbon Dioxide 25 mmol/L (21-32) 04/16/22 07:50 Anion Gap 3 (3-11) 04/16/22 07:50 BUN 6 mg/dl (6-23) 04/16/22 07:50 Creatinine 0.97 mg/dl (0.6-1.4) 04/16/22 07:50 Est Cr Clr Drug Dosing 56.2 ml/min 04/16/22 07:50 Est GFR ( Amer) 83.9 ml/min 04/16/22 07:50 Est GFR (Non-Af Amer) 72.4 ml/min 04/16/22 07:50 BUN/Creatinine Ratio 6.2 (10-20) L 04/16/22 07:50 Glucose 86 mg/dl (70-99(Fasting)) 04/16/22 07:50 POC Glucose 90 mg/dl (70-99) 04/14/22 15:43 Lactate 1.8 mmol/L (0.4-2.0) 04/14/22 17:43 Calcium 7.5 mg/dl (8.5-10.1) L 04/16/22 07:50 Magnesium 1.6 mg/dl (1.7-2.4) L 04/15/22 05:38 Total Bilirubin 0.8 mg/dl (0.2-1.0) 04/16/22 07:50 AST 33 U/L (13-39) 04/16/22 07:50 ALT 17 U/L (7-52) 04/16/22 07:50 Alkaline Phosphatase 88 U/L (34-104) 04/16/22 07:50 Troponin I High Sens 21.2 pg/ml (0-20) H 04/14/22 15:27 C-Reactive Protein 9.29 mg/dl (0-0.5) H 04/16/22 07:50 Total Protein 4.9 gm/dl (6.0-8.3) L D 04/16/22 07:50 Albumin 2.3 gm/dl (3.4-5.0) L 04/16/22 07:50 Globulin 2.6 gm/dl (2.5-4.0) 04/16/22 07:50 Albumin/Globulin Ratio 0.9 (0.9-2) 04/16/22 07:50 Lipase 25 U/L (11-82) 04/14/22 15:27 Procalcitonin 0.25 ng/ml (0-0.5) 04/14/22 15: TSH 13.331 uIu/ml (0.300-4.500) H 04/14/22 15: Free T4 0.93 ng/dl (0.61-1.60) 04/14/22 15:27 Urine Color Yellow 04/14/22 16:33 Urine Appearance Turbid (Clear) A 04/14/22 16:33 Urine pH 8.5 (4.5-7.5) H 04/14/22 16:33 Ur Specific [place] 1.011 (1.000-1.030) 04/14/22 16:33 Urine Protein Trace (Negative) H 04/14/22 16:33 Urine Glucose (UA) Negative (Negative) 04/14/22 16:33 Urine Ketones Negative (Negative) 04/14/22 16:33 Urine Blood Negative (Negative) 04/14/22 16:33 Urine Nitrite Negative (Negative) 04/14/22 16:33 Urine Bilirubin Negative (Negative) 04/14/22 16:33 Urine Urobilinogen Negative (Negative) 04/14/22 16:33 Ur Leukocyte Esterase 3+ (Negative) H 04/14/22 16:33 Urine WBC (Auto) >30 /hpf (0-5) H 04/14/22 16:33 Urine RBC (Auto) 0-4 /hpf (0-4) 04/14/22 16:33 U Hyaline Cast (Auto) 1-5 /lpf (0-5) 04/14/22 16:33 U Epithel Cells (Auto) 20-30 /lpf (0-5) H 04/14/22 16:33 Urine Bacteria (Auto) Negative (Negative) 04/14/22 16:33 Ur Renal Epithelial Cell 0-5 /lpf (0-5) 04/14/22 16:33 Urine Crystals Not Reportable 04/14/22 16:33 Urine Yeast Budding w/ Hyphae (None Prsent) A 04/14/22 16:33 SARS-CoV-2, RNA, NAAT NEGATIVE (NEGATIVE) 04/14/22 15:34 Impressions Chest X-Ray 04/14/22 15:01 XR chest 1V portable CLINICAL HISTORY: weakness TECHNIQUE: Single frontal radiograph of the chest was obtained. Comparison: None available at the time of this dictation. FINDINGS: No lines and tubes are seen. Calcified aortic knob is seen. Prominence and cephalization of the vasculature is seen. No evidence of pleural effusion or pneumothorax. IMPRESSION: Mild pulmonary edema. ACT 112: Negative or not required by law. Electronically signed by: Dieudonne García M.D. 04/14/2022 5:04 PM KUB X-Ray 04/14/22 15:01 XR KUB/Abdomen 1 view CLINICAL HISTORY: vomiting, weak TECHNIQUE: 1 view of the abdomen was obtained. Comparison: None available at the time of this dictation. FINDINGS: Surgical clips are seen in the pelvis. The osseous structures are grossly unremarkable. There is a mildly distended loop of small bowel measuring 32 mm in diameter. A moderate amount of stool is noted within the large bowel. IMPRESSION: No definite evidence of small bowel obstruction, although a 32 mm loop of small bowel is noted in the right abdomen. Attention on CT abdomen pelvis is recommended. ACT 112: Negative or not required by law. Electronically signed by: Dieudonne García M.D. 04/14/2022 5:04 PM Abdomen/Pelvis CT 04/14/22 16:18 CT abd pelvis wo con CLINICAL HISTORY: vomiting, weak TECHNIQUE: Helical axial images of the abdomen and pelvis were obtained. Automated dose lowering techniques and/or adjustment according to patient size were utilized for this exam. This exam was performed without intravenous contrast. CT DOSE: 1529.17 mGy.cm COMPARISON: None available at the time of this dictation. FINDINGS: Lower chest: Peripheral reticular interstitial changes and bronchiectasis are seen. Liver: Unremarkable. No focal lesions are seen. Gallbladder and biliary tree: No calcified gallstones. Normal caliber wall. No intra- or extrahepatic biliary ductal dilation. Pancreas: Unremarkable, no focal lesions. Spleen: Unremarkable. Adrenals: Unremarkable. Kidneys and ureters: Perinephric stranding is noted bilaterally. Bladder: A suprapubic catheter is seen. The bladder is decompressed. Reproductive organs: Surgical clips are seen, patient may be status post prostatectomy. Bowel: There is a small hiatal hernia. A fluid-filled esophagus is noted. There are a few loops of distended small bowel measuring up to 30 mm in diameter, with no evidence of transition point or significant dilation. Lymph nodes Retroperitoneal: Unremarkable. Pelvic: Few calcifications are noted in the pelvic sidewall. Mesenteric: Unremarkable. Peritoneum: Normal. Vessels: Atherosclerotic calcifications are seen. Abdominal wall: Unremarkable. Bones: Degenerative changes in the visualized spine. A blastic focus is noted in the vertebral body of L1 which may represent a bone island. IMPRESSION: 1. There are mildly distended loops of small bowel but no yue dilation to suggest small bowel obstruction. 2. There is a small hiatal hernia with liquid contents in the esophagus compatible with recent vomiting. 3. Reticular opacities in the lung bases may represent interstitial lung disease. ACT 112: Negative or not required by law. Electronically signed by: Dieudonne García M.D. 04/14/2022 5:[address] 04/14/22 16:18 CT head/brain wo con CLINICAL HISTORY: weak, vomiting Technique: Contiguous axial CT images of the head were acquired from the base of the skull to the vertex without intravenous contrast administration. Images were viewed in brain, subdural and bone windows. Automated dose lowering techniques and/or adjustment according to patient size were utilized for this exam. Comparison: None available at the time of this dictation. Findings: Exam is limited by patient motion. Areas of decreased attenuation are present in the periventricular and subcortical white matter bilaterally consistent with small vessel ischemic disease. Generalized cerebral atrophy with commensurate enlargement of the ventricles, sulci, and cisterns is also present. There is no acute intracranial hemorrhage or evidence of acute territorial infarction. No shift of the midline structures, mass effect, or extra-axial abnormalities are shown. Atherosclerotic calcifications are present in the intracranial segments of the internal carotid arteries. Calcifications are noted in the falx. Soft tissue thickening is in the left maxillary sinus. The orbits appear normal. There are no acute fractures of the calvaria or scalp swelling. Impression: No acute intracranial hemorrhage, no evidence of acute territorial infarction or other acute intracranial disease process. ACT 112: Negative or not required by law. Electronically signed by: Dieudonne García M.D. 04/14/2022 5:05 PM
[2022-04-16] MEDS: MAGNESIUM OXIDE 400 MG TAB PO SCH (20:33)
[2022-04-17] MEDS: PANTOprazole 40 MG in DEXTROSE 5% 100 ML IV SCH ×2 (00:29→06:13)
[2022-04-17] MEDS: LEVOTHYROXINE SODIUM 25 MCG TABLET PO SCH (05:43)
[2022-04-17] MEDS: PIPERACILLIN/TAZOBACTAM 3.375 GM in DEXTROSE 5% 100 ML IV SCH (05:43)
[2022-04-17] MEDS: ABIRATERONE ACETATE PO SCH (05:43)
[2022-04-17 06:59] LABS: Basophils # (auto) 0.07 K/uL (0-0.2); Basophils % (auto) 1.1 %; Eosinophils # (auto) 0.85 K/uL (0-0.50); Eosinophils % (auto) 13.8 %; Hematocrit (blood only) 32.9 % (40.1-51.0); Hemoglobin 11.3 g/dl (14.0-18.0); Immature Granulocytes # (auto) 0.03 K/uL (0.00-0.02); Immature Granulocytes % (auto) 0.5 %; Lymphocytes # (auto) 1.05 K/uL (1.2-3.4); Mean Corpuscular Hemoglobin 32.1 pg (25.0-34.0); Mean Corpuscular Hgb Conc 34.3 g/dL (32.0-36.0); Mean Corpuscular Volume 93.5 fL (80.0-100.0); Mean Platelet Volume 9.9 fL (9.4-12.4); Monocytes # (auto) 0.94 K/uL (0.24-0.82); Monocytes % (auto) 15.3 %; Neutrophils # (auto) 3.22 K/uL (1.4-6.5); Neutrophils % (auto) 52.3 %; Platelet Count 273 K/uL (130-400); RDW Coefficient of Variation 13.1 % (11.5-14.5); RDW Standard Deviation 44.3 fL (36.4-46.3); Red Blood Count 3.52 M/uL (4.63-6.08); White Blood Count 6.16 K/ul (4.8-10.8)
[2022-04-17 07:44] LABS: Albumin Globulin Ratio 0.8 (0.9-2); Albumin Level 2.3 gm/dl (3.4-5.0); BUN Creatinine Ratio 5.9 (10-20); Bilirubin,Total 0.7 mg/dl (0.2-1.0); Calcium 7.7 mg/dl (8.5-10.1); Est GFR (African American) 79.9 ml/min; Est GFR (Non-African American) 68.9 ml/min; Globulin 2.8 gm/dl (2.5-4.0); Total Protein 5.1 gm/dl (6.0-8.3)
[2022-04-17] MEDS: MUPIROCIN 2% OINT 22 GM TUBE TOP SCH (08:52)
[2022-04-17] MEDS: ATORVASTATIN 40 MG TAB PO SCH (08:52)
[2022-04-17] MEDS: CHOLECALCIFEROL 1,000 UNITS 25 MCG TAB PO SCH (08:52)
[2022-04-17] MEDS: METOPROLOL SUCC 25MG EXT REL TAB PO SCH (08:52)
[2022-04-17] MEDS: ASCORBIC ACID 500 MG TAB PO SCH ×2 (08:53→21:16)
[2022-04-17] MEDS: CEROVITE ADV FORMULA TAB PO SCH (08:53)
[2022-04-17] MEDS: estradioL 1 MG TAB PO SCH (08:53)
--- NOTE | 2022-04-17 13:50 | Electrocardiogram Report ---
Test Reason : Blood Pressure : / mmHG Vent. Rate : 074 BPM Atrial Rate : 074 BPM P-R Int : 182 ms QRS Dur : 106 ms QT Int : 432 ms P-R-T Axes : 060 -23 -16 degrees QTc Int : 479 ms Sinus rhythm with Premature atrial complexes Incomplete right bundle branch block Nonspecific T wave abnormality Prolonged QT Abnormal ECG When compared with ECG of 14-APR-2022 15:46, Nonspecific T wave abnormality now evident in Lateral leads Confirmed by Demetrius Fan ([id number]) on 04/17/2022 1:49:58 PM Referred By: REFERRED SELF Confirmed By:Demetrius Fan
[2022-04-17] MEDS: POTASSIUM CHLORIDE CRTAB 20 MEQ TABCR PO SCH (14:43)
--- NOTE | 2022-04-17 14:46 | Hospitalist Progress Note ---
Date of Service April 17, 2022 Assessment & Plan (1) Sepsis: Plan: Patient presented with lactic acidosis and lethargy. Source of infection most likely UTI Mohs surgical site- slight erythema present; no purulent drainage Urinalysis shows 3+ leukocyte esterase with WBCs and budding hyphae. Urine culture [place] albicans/dubliniensis Plan: -Patient blood culture so far has been negative. Urine culture shows growth of [place] albicans/dubliniensis. The culture was sent from the previous suprapubic catheter. Catheter was changed. Discussed with infectious disease; no indication of antibiotics or treatment for fungal culture in urine. -Monitor for any diarrhea; patient has been on multiple antibiotic regimens. We will send C. difficile if continues to have loose stool. -Continue wound care for Moh surgical site (2) Hematemesis: Plan: Patient reported 2 episode of hematemesis prior to admission. His hemoglobin on 04/10/2022 as per [facility] was 11.4. Hemoglobin is stable at 11. Patient refused endoscopy by GI. Is status post 2 days of PPI Plan to start oral PPI for next 30 days. Plan 3. History of prostate cancer: s/p proctectomy. Lupron shots , zytiga and prednisone. Holding prednisone for now seems have not taken since discharge from [facility]. Suprapubic catheter exchanged in ED 4. History of atrial fibrillation: On metoprolol succinate, with holding parameters. As per the EPIC notes, declined Coumadin in the past. Resume Aspirin 5. History of chronic diastolic congestive heart failure: 6. Chronic kidney disease stage III: Creatinine Stable 7. History of interstitial lung disease: Will monitor. 8. History of subdural hematoma in the past. 9. Deep venous thrombosis prophylaxis: Sequential compression devices for now. Admission and Anticipated Discharge Date Admission Date: April 14, 2022 Subjective Patient seen and examined at bedside. He complains of 2 episode of loose bowel movements. He complains of generalized weakness and fatigue. He is afebrile since admission. No episode of nausea vomiting or hematemesis. His mentation is much better compared to yesterday. He is able to hold a conversation. Review of Systems Review of Systems: All systems reviewed & are unremarkable except as noted in Subjective Physical Exam Physical Exam: GENERAL: The patient is of moderate build, not in acute distress. HEENT: Mohs surgical site on right cheek; erythema and induration noted. No serosanguineous discharge. NECK: No JVD, no neck masses. CARDIOVASCULAR: S1 and S2 heard. Regular rate and rhythm. No murmur, no gallop. RESPIRATORY SYSTEM: Normal AP diameter. No accessory muscle use. No wheezing, no crackles. ABDOMEN: Soft, bowel sounds present, nontender, no distention. Suprapubic catheter in place draining clear urine. CENTRAL NERVOUS SYSTEM: Alert and oriented x3. Speech is clear. No facial droop. Insight is okay. Obeys simple commands. Moves extremities. EXTREMITIES: No edema, no erythema. Results & Data Results & Data ([facility]) Vital Signs (Past 12 Hours) Vital Signs Temp Pulse Pulse Resp BP Pulse Ox O2 Del Method 04/17/22 11:00 36.8 C 72 18 134/79 96 Room Air 04/17/22 09:00 68 04/17/22 09:00 Room Air 04/17/22 07:00 36.9 C 70 16 125/63 97 Room Air 04/17/22 03:18 36.7 C 70 16 122/68 96 Room Air Laboratory Results Laboratory Results WBC 6.16 K/ul (4.8-10.8) 04/17/22 06:36 RBC 3.52 M/uL (4.63-6.08) L 04/17/22 06:36 Hgb 11.3 g/dl (14.0-18.0) L 04/17/22 06:36 Hct 32.9 % (40.1-51.0) L 04/17/22 06:36 MCV 93.5 fL (80.0-100.0) 04/17/22 06:36 MCH 32.1 pg (25.0-34.0) 04/17/22 06:36 MCHC 34.3 g/dL (32.0-36.0) 04/17/22 06:36 RDW Std Deviation 44.3 fL (36.4-46.3) 04/17/22 06:36 RDW Coeff of Ana Maria 13.1 % (11.5-14.5) 04/17/22 06:36 Plt Count 273 K/uL (130-400) 04/17/22 06:36 MPV 9.9 fL (9.4-12.4) 04/17/22 06:36 Immature Gran % (Auto) 0.5 % 04/17/22 06:36 Neut % (Auto) 52.3 % 04/17/22 06:36 Lymph % (Auto) 17.0 % 04/17/22 06:36 [place] % (Auto) 15.3 % 04/17/22 06:36 Eos % (Auto) 13.8 % 04/17/22 06:36 Baso % (Auto) 1.1 % 04/17/22 06:36 Neut # (Auto) 3.22 K/uL (1.4-6.5) 04/17/22 06:36 Lymph # (Auto) 1.05 K/uL (1.2-3.4) L 04/17/22 06:36 [place] # (Auto) 0.94 K/uL (0.24-0.82) H 04/17/22 06:36 Eos # (Auto) 0.85 K/uL (0-0.50) H 04/17/22 06:36 Baso # (Auto) 0.07 K/uL (0-0.2) 04/17/22 06:36 Immature Gran # (Auto) 0.03 K/uL (0.00-0.02) H 04/17/22 06:36 ESR 44 mm/hr (0-20) H 04/16/22 07:50 PT 14.2 Seconds (9.0-12.0) H 04/14/22 15:32 INR 1.4 (0.9-1.1) H 04/14/22 15:32 Sodium 132 mmol/L (136-145) L 04/17/22 06:36 Potassium 3.0 mmol/L (3.5-5.1) L 04/17/22 06:36 Chloride 103 mmol/L (98-107) 04/17/22 06:36 Carbon Dioxide 26 mmol/L (21-32) 04/17/22 06:36 Anion Gap 3 (3-11) 04/17/22 06:36 BUN 6 mg/dl (6-23) 04/17/22 06:36 Creatinine 1.01 mg/dl (0.6-1.4) 04/17/22 06:36 Est Cr Clr Drug Dosing 55.0 ml/min 04/17/22 06:36 Est GFR ( Amer) 79.9 ml/min 04/17/22 06:36 Est GFR (Non-Af Amer) 68.9 ml/min 04/17/22 06:36 BUN/Creatinine Ratio 5.9 (10-20) L 04/17/22 06:36 Glucose 99 mg/dl (70-99(Fasting)) 04/17/22 06:36 POC Glucose 90 mg/dl (70-99) 04/14/22 15:43 Lactate 1.8 mmol/L (0.4-2.0) 04/14/22 17:43 Calcium 7.7 mg/dl (8.5-10.1) L 04/17/22 06:36 Magnesium 1.6 mg/dl (1.7-2.4) L 04/15/22 05:38 Total Bilirubin 0.7 mg/dl (0.2-1.0) 04/17/22 06:36 AST 35 U/L (13-39) 04/17/22 06:36 ALT 17 U/L (7-52) 04/17/22 06:36 Alkaline Phosphatase 103 U/L (34-104) 04/17/22 06:36 Troponin I High Sens 21.2 pg/ml (0-20) H 04/14/22 15:27 C-Reactive Protein 9.29 mg/dl (0-0.5) H 04/16/22 07:50 Total Protein 5.1 gm/dl (6.0-8.3) L 04/17/22 06:36 Albumin 2.3 gm/dl (3.4-5.0) L 04/17/22 06:36 Globulin 2.8 gm/dl (2.5-4.0) 04/17/22 06:36 Albumin/Globulin Ratio 0.8 (0.9-2) L 04/17/22 06:36 Lipase 25 U/L (11-82) 04/14/22 15:27 Vitamin B12 1457 pg/ml (180-914) H 04/17/22 06:36 Procalcitonin 0.25 ng/ml (0-0.5) 04/14/22 15:27 TSH 13.331 uIu/ml (0.300-4.500) H 04/14/22 15:27 Free T4 0.93 ng/dl (0.61-1.60) 04/14/22 15:27 Urine Color Yellow 04/14/22 16:33 Urine Appearance Turbid (Clear) A 04/14/22 16:33 Urine pH 8.5 (4.5-7.5) H 04/14/22 16:33 Ur Specific [place] 1.011 (1.000-1.030) 04/14/22 16:33 Urine Protein Trace (Negative) H 04/14/22 16:33 Urine Glucose (UA) Negative (Negative) 04/14/22 16:33 Urine Ketones Negative (Negative) 04/14/22 16:33 Urine Blood Negative (Negative) 04/14/22 16: Urine Nitrite Negative (Negative) 04/14/22 16: Urine Bilirubin Negative (Negative) 04/14/22 16: Urine Urobilinogen Negative (Negative) 04/14/22 16:33 Ur Leukocyte Esterase 3+ (Negative) H 04/14/22 16:33 Urine WBC (Auto) >30 /hpf (0-5) H 04/14/22 16:33 Urine RBC (Auto) 0-4 /hpf (0-4) 04/14/22 16:33 U Hyaline Cast (Auto) 1-5 /lpf (0-5) 04/14/22 16:33 U Epithel Cells (Auto) 20-30 /lpf (0-5) H 04/14/22 16:33 Urine Bacteria (Auto) Negative (Negative) 04/14/22 16:33 Ur Renal Epithelial Cell 0-5 /lpf (0-5) 04/14/22 16:33 Urine Crystals Not Reportable 04/14/22 16:33 Urine Yeast Budding w/ Hyphae (None Prsent) A 04/14/22 16:33 Random Vancomycin 13.2 mcg/ml (10-20) 04/17/22 06:36 SARS-CoV-2, RNA, NAAT NEGATIVE (NEGATIVE) 04/14/22 15:34 Impressions Chest X-Ray 04/14/22 15:01 XR chest 1V portable CLINICAL HISTORY: weakness TECHNIQUE: Single frontal radiograph of the chest was obtained. Comparison: None available at the time of this dictation. FINDINGS: No lines and tubes are seen. Calcified aortic knob is seen. Prominence and cephalization of the vasculature is seen. No evidence of pleural effusion or pneumothorax. IMPRESSION: Mild pulmonary edema. ACT 112: Negative or not required by law. Electronically signed by: Dieudonne García M.D. 04/14/2022 5:04 PM KUB X-Ray 04/14/22 15:01 XR KUB/Abdomen 1 view CLINICAL HISTORY: vomiting, weak TECHNIQUE: 1 view of the abdomen was obtained. Comparison: None available at the time of this dictation. FINDINGS: Surgical clips are seen in the pelvis. The osseous structures are grossly unremarkable. There is a mildly distended loop of small bowel measuring 32 mm in diameter. A moderate amount of stool is noted within the large bowel. IMPRESSION: No definite evidence of small bowel obstruction, although a 32 mm loop of small bowel is noted in the right abdomen. Attention on CT abdomen pelvis is recommended. ACT 112: Negative or not required by law. Electronically signed by: Dieudonne García M.D. 04/14/2022 5:04 PM Abdomen/Pelvis CT 04/14/22 16:18 CT abd pelvis wo con CLINICAL HISTORY: vomiting, weak TECHNIQUE: Helical axial images of the abdomen and pelvis were obtained. Automated dose lowering techniques and/or adjustment according to patient size were utilized for this exam. This exam was performed without intravenous contrast. CT DOSE: 1529.17 mGy.cm COMPARISON: None available at the time of this dictation. FINDINGS: Lower chest: Peripheral reticular interstitial changes and bronchiectasis are seen. Liver: Unremarkable. No focal lesions are seen. Gallbladder and biliary tree: No calcified gallstones. Normal caliber wall. No intra- or extrahepatic biliary ductal dilation. Pancreas: Unremarkable, no focal lesions. Spleen: Unremarkable. Adrenals: Unremarkable. Kidneys and ureters: Perinephric stranding is noted bilaterally. Bladder: A suprapubic catheter is seen. The bladder is decompressed. Reproductive organs: Surgical clips are seen, patient may be status post prostatectomy. Bowel: There is a small hiatal hernia. A fluid-filled esophagus is noted. There are a few loops of distended small bowel measuring up to 30 mm in diameter, with no evidence of transition point or significant dilation. Lymph nodes Retroperitoneal: Unremarkable. Pelvic: Few calcifications are noted in the pelvic sidewall. Mesenteric: Unremarkable. Peritoneum: Normal. Vessels: Atherosclerotic calcifications are seen. Abdominal wall: Unremarkable. Bones: Degenerative changes in the visualized spine. A blastic focus is noted in the vertebral body of L1 which may represent a bone island. IMPRESSION: 1. There are mildly distended loops of small bowel but no yue dilation to suggest small bowel obstruction. 2. There is a small hiatal hernia with liquid contents in the esophagus compatible with recent vomiting. 3. Reticular opacities in the lung bases may represent interstitial lung disease. ACT 112: Negative or not required by law. Electronically signed by: Dieudonne García M.D. 04/14/2022 5:[address] 04/14/22 16:18 CT head/brain wo con CLINICAL HISTORY: weak, vomiting Technique: Contiguous axial CT images of the head were acquired from the base of the skull to the vertex without intravenous contrast administration. Images were viewed in brain, subdural and bone windows. Automated dose lowering techniques and/or adjustment according to patient size were utilized for this exam. Comparison: None available at the time of this dictation. Findings: Exam is limited by patient motion. Areas of decreased attenuation are present in the periventricular and subcortical white matter bilaterally consistent with small vessel ischemic disease. Generalized cerebral atrophy with commensurate enlargement of the ventricles, sulci, and cisterns is also present. There is no acute intracranial hemorrhage or evidence of acute territorial infarction. No shift of the midline structures, mass effect, or extra-axial abnormalities are shown. Atherosclerotic calcifications are present in the intracranial segments of the internal carotid arteries. Calcifications are noted in the falx. Soft tissue thickening is in the left maxillary sinus. The orbits appear normal. There are no acute fractures of the calvaria or scalp swelling. Impression: No acute intracranial hemorrhage, no evidence of acute territorial infarction or other acute intracranial disease process. ACT 112: Negative or not required by law. Electronically signed by: Dieudonne García M.D. 04/14/2022 5:05 PM
[2022-04-17] MEDS: ASPIRIN 81 MG CHEW PO SCH (15:51)
[2022-04-17] MEDS ORDERED: COUGH DROP (SUGAR FREE) LOZ 24 LOZ/1 BOX BUCCAL STA (20:00)
[2022-04-17] MEDS: PANTOprazole 40 MG TAB PO SCH ×2 (20:13→21:16)
[2022-04-17] MEDS: MAGNESIUM OXIDE 400 MG TAB PO SCH (21:16)
[2022-04-18] MEDS: ABIRATERONE ACETATE PO SCH (05:42)
[2022-04-18] MEDS: LEVOTHYROXINE SODIUM 25 MCG TABLET PO SCH (05:45)
[2022-04-18 06:50] LABS: Basophils # (auto) 0.05 K/uL (0-0.2); Basophils % (auto) 0.8 %; Eosinophils # (auto) 0.88 K/uL (0-0.50); Hematocrit (blood only) 31.5 % (40.1-51.0); Hemoglobin 10.9 g/dl (14.0-18.0); Immature Granulocytes # (auto) 0.03 K/uL (0.00-0.02); Immature Granulocytes % (auto) 0.5 %; Lymphocytes # (auto) 1.09 K/uL (1.2-3.4); Lymphocytes % (auto) 17.4 %; Mean Corpuscular Hemoglobin 32.2 pg (25.0-34.0); Mean Corpuscular Hgb Conc 34.6 g/dL (32.0-36.0); Mean Corpuscular Volume 93.2 fL (80.0-100.0); Mean Platelet Volume 9.8 fL (9.4-12.4); Monocytes # (auto) 0.97 K/uL (0.24-0.82); Monocytes % (auto) 15.4 %; Neutrophils # (auto) 3.26 K/uL (1.4-6.5); Neutrophils % (auto) 51.9 %; Platelet Count 265 K/uL (130-400); RDW Coefficient of Variation 13.1 % (11.5-14.5); RDW Standard Deviation 44.8 fL (36.4-46.3); Red Blood Count 3.38 M/uL (4.63-6.08); White Blood Count 6.28 K/ul (4.8-10.8)
[2022-04-18 07:18] LABS: Albumin Globulin Ratio 0.9 (0.9-2); Albumin Level 2.2 gm/dl (3.4-5.0); BUN Creatinine Ratio 7.4 (10-20); Bilirubin,Total 0.6 mg/dl (0.2-1.0); Calcium 7.6 mg/dl (8.5-10.1); Creatinine Clr Calc Pharmacy 58.2 ml/min; Est GFR (African American) 86.1 ml/min; Est GFR (Non-African American) 74.2 ml/min; Globulin 2.5 gm/dl (2.5-4.0); Potassium 3.3 mmol/L (3.5-5.1); Total Protein 4.7 gm/dl (6.0-8.3)
[2022-04-18] MEDS: MUPIROCIN 2% OINT 22 GM TUBE TOP SCH (09:10)
[2022-04-18] MEDS ORDERED: PROMETHAZINE HCL 12.5 MG in SODIUM CHLORIDE 0.9% 50 ML IV PRN (10:10)
[2022-04-18] MEDS: ASCORBIC ACID 500 MG TAB PO SCH ×2 (11:09→20:51)
[2022-04-18] MEDS: ASPIRIN 81 MG CHEW PO SCH (11:09)
[2022-04-18] MEDS: estradioL 1 MG TAB PO SCH (11:09)
[2022-04-18] MEDS: ATORVASTATIN 40 MG TAB PO SCH (11:10)
[2022-04-18] MEDS: PANTOprazole 40 MG TAB PO SCH ×2 (11:10→20:51)
[2022-04-18] MEDS: CHOLECALCIFEROL 1,000 UNITS 25 MCG TAB PO SCH (11:11)
[2022-04-18] MEDS: CEROVITE ADV FORMULA TAB PO SCH (11:11)
[2022-04-18] MEDS: METOPROLOL SUCC 25MG EXT REL TAB PO SCH (11:11)
[2022-04-18] MEDS: POTASSIUM CHLORIDE CRTAB 20 MEQ TABCR PO SCH (11:21)
[2022-04-18] MEDS: POTASSIUM CHLORIDE PWD 20 MEQ PACK PO SCH (12:25)
--- NOTE | 2022-04-18 13:23 | Hospitalist Progress Note ---
Date of Service April 18, 2022 Assessment & Plan (1) Sepsis: Plan: Patient presented with lactic acidosis and lethargy. Source of infection most likely UTI Mohs surgical site- slight erythema present; no purulent drainage Urinalysis shows 3+ leukocyte esterase with WBCs and budding hyphae. Urine culture [place] albicans/dubliniensis Plan: -Patient blood culture so far has been negative. Urine culture shows growth of [place] albicans/dubliniensis. The culture was sent from the previous suprapubic catheter. Catheter was changed. Discussed with infectious disease; no indication of antibiotics or treatment for fungal culture in urine. -Monitor for any diarrhea; patient has been on multiple antibiotic regimens. -Continue wound care for Moh surgical site (2) Hematemesis: Plan: Patient reported 2 episode of hematemesis prior to admission. His hemoglobin on 04/10/2022 as per [facility] was 11.4. Hemoglobin is stable at 11. Patient refused endoscopy by GI. Is status post 2 days of PPI Plan to continue oral PPI for next 30 days. (3) Subclinical hypothyroidism: Plan: TSH elevated to 13 with T4 of 0.93. Patient complains of increased fatigue. Started on levothyroxine of 25 mcg given his cardiac risk factor including paroxysmal A. fib. Needs follow-up as outpatient and repeat thyroid function test in 6 weeks to try titrate the dose. Plan 4. History of prostate cancer: s/p proctectomy. Lupron shots , zytiga and prednisone. Holding prednisone for now seems have not taken since discharge from [facility]. Suprapubic catheter exchanged in ED 5. History of atrial fibrillation: On metoprolol succinate, with holding parameters. As per the EPIC notes, declined Coumadin in the past. Resume Aspirin 6. History of chronic diastolic congestive heart failure: 7. Chronic kidney disease stage III: Creatinine Stable 8. History of interstitial lung disease: Will monitor. 9. History of subdural hematoma in the past. 10. Deep venous thrombosis prophylaxis: heparin started Admission and Anticipated Discharge Date Admission Date: April 14, 2022 Subjective Seen and examined at bedside. He complains of nausea; says he has no appetite. No further episode of loose bowel movements since the one in the morning. He has been afebrile. Review of Systems Review of Systems: All systems reviewed & are unremarkable except as noted in Subjective Physical Exam Physical Exam: GENERAL: The patient is of moderate build, not in acute distress. HEENT: Mohs surgical site on right cheek; erythema and induration noted. No serosanguineous discharge. NECK: No JVD, no neck masses. CARDIOVASCULAR: S1 and S2 heard. Regular rate and rhythm. No murmur, no gallop. RESPIRATORY SYSTEM: Normal AP diameter. No accessory muscle use. No wheezing, no crackles. ABDOMEN: Soft, bowel sounds present, nontender, no distention. Suprapubic catheter in place draining clear urine. CENTRAL NERVOUS SYSTEM: Alert and oriented x3. Speech is clear. No facial droop. Insight is okay. Obeys simple commands. Moves extremities. EXTREMITIES: No edema, no erythema. Results & Data Results & Data ([facility]) Vital Signs (Past 12 Hours) Vital Signs Temp Pulse Pulse Resp BP Pulse Ox O2 Del Method 04/18/22 12:00 36.8 C 73 18 128/59 L 97 04/18/22 08:37 36.8 C 69 18 115/62 97 04/18/22 08:00 75 04/18/22 08:00 Room Air 04/18/22 02:37 36.9 C 82 16 108/63 96 Room Air Laboratory Results Laboratory Results WBC 6.28 K/ul (4.8-10.8) 04/18/22 06:21 RBC 3.38 M/uL (4.63-6.08) L 04/18/22 06:21 Hgb 10.9 g/dl (14.0-18.0) L 04/18/22 06:21 Hct 31.5 % (40.1-51.0) L 04/18/22 06:21 MCV 93.2 fL (80.0-100.0) 04/18/22 06:21 MCH 32.2 pg (25.0-34.0) 04/18/22 06:21 MCHC 34.6 g/dL (32.0-36.0) 04/18/22 06:21 RDW Std Deviation 44.8 fL (36.4-46.3) 04/18/22 06:21 RDW Coeff of [place] 13.1 % (11.5-14.5) 04/18/22 06:21 Plt Count 265 K/uL (130-400) 04/18/22 06:21 MPV 9.8 fL (9.4-12.4) 04/18/22 06:21 Immature Gran % (Auto) 0.5 % 04/18/22 06:21 Neut % (Auto) 51.9 % 04/18/22 06:21 Lymph % (Auto) 17.4 % 04/18/22 06:21 [place] % (Auto) 15.4 % 04/18/22 06:21 Eos % (Auto) 14.0 % 04/18/22 06:21 Baso % (Auto) 0.8 % 04/18/22 06:21 Neut # (Auto) 3.26 K/uL (1.4-6.5) 04/18/22 06:21 Lymph # (Auto) 1.09 K/uL (1.2-3.4) L 04/18/22 06:21 [place] # (Auto) 0.97 K/uL (0.24-0.82) H 04/18/22 06:21 Eos # (Auto) 0.88 K/uL (0-0.50) H 04/18/22 06:21 Baso # (Auto) 0.05 K/uL (0-0.2) 04/18/22 06:21 Immature Gran # (Auto) 0.03 K/uL (0.00-0.02) H 04/18/22 06:21 ESR 44 mm/hr (0-20) H 04/16/22 07:50 PT 14.2 Seconds (9.0-12.0) H 04/14/22 15:32 INR 1.4 (0.9-1.1) H 04/14/22 15:32 Sodium 133 mmol/L (136-145) L 04/18/22 06:21 Potassium 3.3 mmol/L (3.5-5.1) L 04/18/22 06:21 Chloride 103 mmol/L (98-107) 04/18/22 06:21 Carbon Dioxide 27 mmol/L (21-32) 04/18/22 06:21 Anion Gap 3 (3-11) 04/18/22 06:21 BUN 7 mg/dl (6-23) 04/18/22 06:21 Creatinine 0.95 mg/dl (0.6-1.4) 04/18/22 06:21 Est Cr Clr Drug Dosing 58.2 ml/min 04/18/22 06:21 Est GFR ( Amer) 86.1 ml/min 04/18/22 06:21 Est GFR (Non-Af Amer) 74.2 ml/min 04/18/22 06:21 BUN/Creatinine Ratio 7.4 (10-20) L 04/18/22 06:21 Glucose 79 mg/dl (70-99(Fasting)) 04/18/22 06:21 POC Glucose 90 mg/dl (70-99) 04/14/22 15:43 Lactate 1.8 mmol/L (0.4-2.0) 04/14/22 17:43 Calcium 7.6 mg/dl (8.5-10.1) L 04/18/22 06:21 Magnesium 1.6 mg/dl (1.7-2.4) L 04/15/22 05:38 Total Bilirubin 0.6 mg/dl (0.2-1.0) 04/18/22 06:21 AST 33 U/L (13-39) 04/18/22 06:21 ALT 16 U/L (7-52) 04/18/22 06:21 Alkaline Phosphatase 102 U/L (34-104) 04/18/22 06:21 Troponin I High Sens 21.2 pg/ml (0-20) H 04/14/22 15:27 C-Reactive Protein 9.29 mg/dl (0-0.5) H 04/16/22 07:50 Total Protein 4.7 gm/dl (6.0-8.3) L 04/18/22 06:21 Albumin 2.2 gm/dl (3.4-5.0) L 04/18/22 06:21 Globulin 2.5 gm/dl (2.5-4.0) 04/18/22 06:21 Albumin/Globulin Ratio 0.9 (0.9-2) 04/18/22 06:21 Lipase 25 U/L (11-82) 04/14/22 15:27 Vitamin B12 1457 pg/ml (180-914) H 04/17/22 06:36 Procalcitonin 0.25 ng/ml (0-0.5) 04/14/22 15:27 TSH 13.331 uIu/ml (0.300-4.500) H 04/14/22 15:27 Free T4 0.93 ng/dl (0.61-1.60) 04/14/22 15:27 Urine Color Yellow 04/14/22 16:33 Urine Appearance Turbid (Clear) A 04/14/22 16:33 Urine pH 8.5 (4.5-7.5) H 04/14/22 16:33 Ur Specific [place] 1.011 (1.000-1.030) 04/14/22 16:33 Urine Protein Trace (Negative) H 04/14/22 16:33 Urine Glucose (UA) Negative (Negative) 04/14/22 16: Urine Ketones Negative (Negative) 04/14/22 16: Urine Blood Negative (Negative) 04/14/22 16: Urine Nitrite Negative (Negative) 04/14/22 16: Urine Bilirubin Negative (Negative) 04/14/22 16:33 Urine Urobilinogen Negative (Negative) 04/14/22 16:33 Ur Leukocyte Esterase 3+ (Negative) H 04/14/22 16:33 Urine WBC (Auto) >30 /hpf (0-5) H 04/14/22 16:33 Urine RBC (Auto) 0-4 /hpf (0-4) 04/14/22 16: U Hyaline Cast (Auto) 1-5 /lpf (0-5) 04/14/22 16:33 U Epithel Cells (Auto) 20-30 /lpf (0-5) H 04/14/22 16:33 Urine Bacteria (Auto) Negative (Negative) 04/14/22 16:33 Ur Renal Epithelial Cell 0-5 /lpf (0-5) 04/14/22 16:33 Urine Crystals Not Reportable 04/14/22 16:33 Urine Yeast Budding w/ Hyphae (None Prsent) A 04/14/22 16:33 Random Vancomycin 13.2 mcg/ml (10-20) 04/17/22 06:36 SARS-CoV-2, RNA, NAAT NEGATIVE (NEGATIVE) 04/14/22 15:34 Impressions Chest X-Ray 04/14/22 15:01 XR chest 1V portable CLINICAL HISTORY: weakness TECHNIQUE: Single frontal radiograph of the chest was obtained. Comparison: None available at the time of this dictation. FINDINGS: No lines and tubes are seen. Calcified aortic knob is seen. Prominence and cephalization of the vasculature is seen. No evidence of pleural effusion or pneumothorax. IMPRESSION: Mild pulmonary edema. ACT 112: Negative or not required by law. Electronically signed by: Dieudonne García M.D. 04/14/2022 5:04 PM KUB X-Ray 04/14/22 15:01 XR KUB/Abdomen 1 view CLINICAL HISTORY: vomiting, weak TECHNIQUE: 1 view of the abdomen was obtained. Comparison: None available at the time of this dictation. FINDINGS: Surgical clips are seen in the pelvis. The osseous structures are grossly unremarkable. There is a mildly distended loop of small bowel measuring 32 mm in diameter. A moderate amount of stool is noted within the large bowel. IMPRESSION: No definite evidence of small bowel obstruction, although a 32 mm loop of small bowel is noted in the right abdomen. Attention on CT abdomen pelvis is recommended. ACT 112: Negative or not required by law. Electronically signed by: Dieudonne García M.D. 04/14/2022 5:04 PM Abdomen/Pelvis CT 04/14/22 16:18 CT abd pelvis wo con CLINICAL HISTORY: vomiting, weak TECHNIQUE: Helical axial images of the abdomen and pelvis were obtained. Automated dose lowering techniques and/or adjustment according to patient size were utilized for this exam. This exam was performed without intravenous contrast. CT DOSE: 1529.17 mGy.cm COMPARISON: None available at the time of this dictation. FINDINGS: Lower chest: Peripheral reticular interstitial changes and bronchiectasis are seen. Liver: Unremarkable. No focal lesions are seen. Gallbladder and biliary tree: No calcified gallstones. Normal caliber wall. No intra- or extrahepatic biliary ductal dilation. Pancreas: Unremarkable, no focal lesions. Spleen: Unremarkable. Adrenals: Unremarkable. Kidneys and ureters: Perinephric stranding is noted bilaterally. Bladder: A suprapubic catheter is seen. The bladder is decompressed. Reproductive organs: Surgical clips are seen, patient may be status post prostatectomy. Bowel: There is a small hiatal hernia. A fluid-filled esophagus is noted. There are a few loops of distended small bowel measuring up to 30 mm in diameter, with no evidence of transition point or significant dilation. Lymph nodes Retroperitoneal: Unremarkable. Pelvic: Few calcifications are noted in the pelvic sidewall. Mesenteric: Unremarkable. Peritoneum: Normal. Vessels: Atherosclerotic calcifications are seen. Abdominal wall: Unremarkable. Bones: Degenerative changes in the visualized spine. A blastic focus is noted in the vertebral body of L1 which may represent a bone island. IMPRESSION: 1. There are mildly distended loops of small bowel but no yue dilation to suggest small bowel obstruction. 2. There is a small hiatal hernia with liquid contents in the esophagus compatible with recent vomiting. 3. Reticular opacities in the lung bases may represent interstitial lung disease. ACT 112: Negative or not required by law. Electronically signed by: Dieudonne García M.D. 04/14/2022 5:[address] 04/14/22 16:18 CT head/brain wo con CLINICAL HISTORY: weak, vomiting Technique: Contiguous axial CT images of the head were acquired from the base of the skull to the vertex without intravenous contrast administration. Images were viewed in brain, subdural and bone windows. Automated dose lowering techniques and/or adjustment according to patient size were utilized for this exam. Comparison: None available at the time of this dictation. Findings: Exam is limited by patient motion. Areas of decreased attenuation are present in the periventricular and subcortical white matter bilaterally consistent with small vessel ischemic disease. Generalized cerebral atrophy with commensurate enlargement of the ventricles, sulci, and cisterns is also present. There is no acute intracranial hemorrhage or evidence of acute territorial infarction. No shift of the midline structures, mass effect, or extra-axial abnormalities are shown. Atherosclerotic calcifications are present in the intracranial segments of the internal carotid arteries. Calcifications are noted in the falx. Soft tissue thickening is in the left maxillary sinus. The orbits appear normal. There are no acute fractures of the calvaria or scalp swelling. Impression: No acute intracranial hemorrhage, no evidence of acute territorial infarction or other acute intracranial disease process. ACT 112: Negative or not required by law. Electronically signed by: Dieudonne García M.D. 04/14/2022 5:05 PM
[2022-04-18] MEDS: HEPARIN SOD 5,000 UNIT/0.5 ML VIAL SQ SCH (20:31)
[2022-04-18] MEDS: MAGNESIUM OXIDE 400 MG TAB PO SCH (20:51)
[2022-04-19] MEDS: ABIRATERONE ACETATE PO SCH (06:13)
[2022-04-19] MEDS: LEVOTHYROXINE SODIUM 25 MCG TABLET PO SCH (06:13)
[2022-04-19 06:35] LABS: Basophils # (auto) 0.04 K/uL (0-0.2); Basophils % (auto) 0.6 %; Eosinophils % (auto) 14.1 %; Hematocrit (blood only) 32.4 % (40.1-51.0); Hemoglobin 11.1 g/dl (14.0-18.0); Immature Granulocytes # (auto) 0.05 K/uL (0.00-0.02); Immature Granulocytes % (auto) 0.8 %; Lymphocytes # (auto) 1.09 K/uL (1.2-3.4); Lymphocytes % (auto) 17.1 %; Mean Corpuscular Hemoglobin 31.9 pg (25.0-34.0); Mean Corpuscular Hgb Conc 34.3 g/dL (32.0-36.0); Mean Corpuscular Volume 93.1 fL (80.0-100.0); Mean Platelet Volume 9.8 fL (9.4-12.4); Monocytes # (auto) 1.03 K/uL (0.24-0.82); Monocytes % (auto) 16.1 %; Neutrophils # (auto) 3.27 K/uL (1.4-6.5); Neutrophils % (auto) 51.3 %; Platelet Count 286 K/uL (130-400); RDW Coefficient of Variation 13.2 % (11.5-14.5); RDW Standard Deviation 45.1 fL (36.4-46.3); Red Blood Count 3.48 M/uL (4.63-6.08); White Blood Count 6.38 K/ul (4.8-10.8)
[2022-04-19 07:01] LABS: Albumin Globulin Ratio 0.9 (0.9-2); Albumin Level 2.3 gm/dl (3.4-5.0); BUN Creatinine Ratio 7.4 (10-20); Bilirubin,Total 0.6 mg/dl (0.2-1.0); Calcium 7.7 mg/dl (8.5-10.1); Creatinine Clr Calc Pharmacy 58.3 ml/min; Est GFR (African American) 86.1 ml/min; Est GFR (Non-African American) 74.2 ml/min; Globulin 2.6 gm/dl (2.5-4.0); Potassium 3.6 mmol/L (3.5-5.1); Total Protein 4.9 gm/dl (6.0-8.3)
[2022-04-19] MEDS: ASCORBIC ACID 500 MG TAB PO SCH (09:05)
[2022-04-19] MEDS: ASPIRIN 81 MG CHEW PO SCH (09:05)
[2022-04-19] MEDS: METOPROLOL SUCC 25MG EXT REL TAB PO SCH (09:06)
[2022-04-19] MEDS: CHOLECALCIFEROL 1,000 UNITS 25 MCG TAB PO SCH (09:06)
[2022-04-19] MEDS: ATORVASTATIN 40 MG TAB PO SCH (09:06)
[2022-04-19] MEDS: PANTOprazole 40 MG TAB PO SCH (09:07)
[2022-04-19] MEDS: CEROVITE ADV FORMULA TAB PO SCH (09:08)
[2022-04-19] MEDS: HEPARIN SOD 5,000 UNIT/0.5 ML VIAL SQ SCH (09:08)
[2022-04-19] MEDS: estradioL 1 MG TAB PO SCH (09:09)
[2022-04-19] MEDS: MUPIROCIN 2% OINT 22 GM TUBE TOP SCH (09:09)
[2022-04-19] MEDS: POTASSIUM CHLORIDE PWD 20 MEQ PACK PO SCH (09:10)
--- NOTE | 2022-04-19 17:47 | Discharge Summary ---
Date of Service April 19, 2022 Admission HPI Per Admitting Provider This is an 81-year-old male with history of prostate cancer diagnosed in 2001, aggressive disease status post robotic prostatectomy, currently developed urinary incontinence, underwent artificial urinary sphincter placement and has currently suprapubic catheter placed in 2020 as per daughter, since then had 3 sepsis; history of chronic kidney disease stage III; history of chronic diastolic congestive heart failure; chronic atrial fibrillation, anticoagulation with aspirin; history of melanoma and the patient is status post Mohs surgery recently on the right cheek, Mohs surgery was done on 03/30/2022. He was in [facility] recently for his infection on Mohs surgical site. The Mohs surgery was done for melanoma. Cultures were positive for MRSA, he was treated with IV vancomycin. He seems to be improved. Urology was consulted, but catheter was not changed. Advised to follow as outpatient with urology, discharged on doxycycline. He was in the hospital for 1 week and discharged last Tuesday. Daughter is giving the history. After coming home, he was still having lot of nausea, vomiting, they thought it was doxycycline and he stopped it and contacted his family doctor, but by the time the family doctor contacted back, he took Cipro, which was at home, but his nausea, vomiting was not improving. They thought his symptoms could be not from doxycycline as they persisted even after stopping it..Yesterday he was able to ambulate with home PT, but today was very weak, tired, not ambulating, and he vomited about 5-6 times, and had some blood in the vomitus. He has poor appetite, not at all eating.No hematuria. The patient seemed a little confused at home, was brought in here. After fluids and antibiotics, he is more alert and awake as per daughter, and talking. The patient denies any headache, denies any chest pain, no abdominal pain, no back pain, no chest pain. He is little short of breath. Denies any blurred vision or double vision. No earache, no runny nose, no sore throat, no cough. He had COVID about 8 weeks ago. Today COVID test is negative. Alert and oriented x3. Initially his lactic acid on presentation was 3.3, repeat is 1.8. Currently, hemodynamically stable, saturating okay on room air. Daughter is also concerned about his diet because he is not eating much since he got sick Admission Exam Per Admitting Provider GENERAL: The patient is of moderate build, not in acute distress. VITAL SIGNS: Temperature 37.1, pulse 84, respiratory rate 20, blood pressure 106/65, oxygen 94% on room air. HEENT: Pupils equal, round, and reactive to light. Oral mucosa moist. NECK: No JVD, no neck masses. CARDIOVASCULAR: S1 and S2 heard. Regular rate and rhythm. No murmur, no gall op. RESPIRATORY SYSTEM: Normal AP diameter. No accessory muscle use. No wheezing, no crackles. ABDOMEN: Soft, bowel sounds present, nontender, no distention. CENTRAL NERVOUS SYSTEM: Alert and oriented x3. Speech is clear. No facial droop. Insight is okay. Obeys simple commands. Moves extremities. EXTREMITIES: No edema, no erythema. Principal Diagnosis 1) Hematemesis 2) Sepsis ruled out 3) Subclinical hypothyroidism Discharge Exam GENERAL: The patient is of moderate build, not in acute distress. HEENT: Mohs surgical site on right cheek; erythema and induration noted. No serosanguineous discharge. NECK: No JVD, no neck masses. CARDIOVASCULAR: S1 and S2 heard. Regular rate and rhythm. No murmur, no gallop. RESPIRATORY SYSTEM: Normal AP diameter. No accessory muscle use. No wheezing, no crackles. ABDOMEN: Soft, bowel sounds present, nontender, no distention. Suprapubic c atheter in place draining clear urine. CENTRAL NERVOUS SYSTEM: Alert and oriented x3. Speech is clear. No facial droop. Insight is okay. Obeys simple commands. Moves extremities. EXTREMITIES: No edema, no erythema. Discharge Data Allergies Allergy/AdvReac Type Severity Reaction Status Date / Time No Known Allergies Allergy Verified 04/14/22 18:32 Consultations 04/14/22 17:54 ED Decision to Admit Stat 04/15/22 08:00 Consult Gastroenterology Routine Consult Urology Routine 04/16/22 14:41 Consult Infectious Diseases Routine Procedures Performed Operation Date: 04/15/22 16:25 <No data on this case meets the specified criteria> Ordered Studies 04/14/22 16:18 CT abd pelvis wo con Stat CT head/brain wo con Stat Hospital Course (1) Sepsis: (2) Hematemesis: (3) Subclinical hypothyroidism: Plan Patient is an 81-year-old male with history of prostate cancer diagnosed in 2001, aggressive disease status post robotic prostatectomy with suprapubic catheter placed in 2020, since then had 3 sepsis; history of chronic kidney disease stage III; history of chronic diastolic congestive heart failure; chronic atrial fibrillation, anticoagulation with aspirin; history of melanoma presented to the ED with complaints of nausea vomiting and possible hematemesis. Patient was admitted for concern of upper GI bleed and possible sepsis. For the upper GI bleed, patient was recommended to undergo upper endoscopy which he rejected. Patient was managed with IV Protonix and switch to oral Protonix twice daily. His hemoglobin was stable at 11 throughout the admission. Patient underwent sepsis work-up including blood culture and urine culture. Urine culture grew [place]; infectious disease was consulted. No antifungals were recommended; patient's suprapubic catheter was changed in the ED. Patient was found to have subclinical hypothyroidism with TSH of 13 with normal T4; was started on low-dose levothyroxine 25 mcg. Patient was evaluated by PT OT and was discharged to [facility] for further rehab. He was instructed to take Protonix 40 mg twice daily for next 30 days. He was also instructed to follow- up with his PCP to monitor hypothyroidism. Total Time Total Time Spent Total Time Spent (In Minutes): 35 Total Time Includes: Examination of the Patient, Discharge Planning, Medication Reconciliation, Communication With Other Providers and Other Discharge Plan Discharge Items Patient Disposition: Transfer Inpatient Rehab Fac Reason For Visit: INFECTION Discharge Diagnosis: Hematemesis Sepsis ruled out Subclinical Hypothyroidism Activity: Resume your previous activity Non-emergency contact: Primary Care Provider Call non-emergency contact if: you have any medication questions Follow-up/Referrals: Sly Ulloa MD [Primary Care Provider] - Diet: Regular Addtl Attending Provider Instructions: Wound care instructions: Clean and dry ED with saline. Apply mupirocin ointment and cover with OPTi forms. Change daily and as needed. The following medication changes have been made. 1) Please take Protonix 40 mg twice daily for next 30 days. 2) You were restarted on levothyroxine 25 mcg for subclinical hypothyroidism. Please follow-up with your primary care doctor. Repeat TSH in 6 weeks and titrate the dose as needed 3) Please stop taking Pepcid Pending Studies at Discharge: No Stand-Alone Forms: My [facility] Skilled Items Patient informed of condition?: Yes DNR: No Discharge Level of Care: Acute rehab Communicable Disease: No Discharge Prognosis: Stable Lines: None Urinary Catheter: Yes Medications and DC Order Prescriptions: New levothyroxine [Synthroid] 25 mcg Tablet 25 mcg PO DAILYBB Qty: 30 0RF pantoprazole 40 mg Tablet,Delayed Release (Dr/Ec) 40 mg PO BID 30 Days Qty: 60 0RF Continued mupirocin 2 % ointment 1 applic TOPICAL DAILY Rx Instructions: start 04/11/22 apply to wound abiraterone [Zytiga] 500 mg Tablet 1,000 mg PO DAILYBB Rx Instructions: take 2 tablets 1 hour before breakfast atorvastatin 40 mg Tablet 40 mg PO DAILY [id number] Tablet 1 tab PO DAILY calcium citrate 200 mg (950 mg) Tablet 200 mg PO DAILY Rx Instructions: total calcium 800 mg & vitamin d 1000 magnesium 143 mg PO HS cranberry extract [Cranberry Juice Powder] 425 mg Capsule 425 mg PO BID Rx Instructions: administer with meals methenamine hippurate 1 gram tablet 1 g PO BID coenzyme Q10 [CoQ-10] 100 mg Capsule 100 mg PO DAILY zinc 50 mg Capsule 50 mg PO DAILY magnesium hydroxide [Milk of Magnesia] 400 mg/5 mL Suspension 15 ml PO DAILY PRN (Reason: Constipation) prednisone 5 mg Tablet 5 mg PO BID Rx Instructions: take with food diphenoxylate-atropine [Lomotil] 2.5-0.025 mg Tablet 1 tab PO DAILY PRN (Reason: Diarrhea) ascorbic acid (vitamin C) [Vitamin C] 500 mg Tablet 500 mg PO BID estradiol 2 mg Tablet 2 mg PO QAM metoprolol succinate 25 mg Tablet Extended Release 24 Hr 25 mg PO QAM cholecalciferol (vitamin D3) [Vitamin D3] 50 mcg (2,000 unit) Tablet 50 mcg PO QAM Lupron Depot (6 Month) 45 mg Syringe Kit 45 mg IM DIRECTED Rx Instructions: every 6 months aspirin 81 mg Tablet,Delayed Release (Dr/Ec) 81 mg PO Q OTHER DAY Discontinued doxycycline hyclate 100 mg capsule 100 mg PO BID Rx Instructions: take for 9 days ordered 04/10/22 sulfamethoxazole-trimethoprim 800-160 mg tablet 1 tab PO BID Rx Instructions: take for 14 days ordered 04/13/22 famotidine [Pepcid AC] 10 mg Tablet 10 mg PO HS PRN (Reason: Gastric Reflux) nitrofurantoin macrocrystal 50 mg capsule 500 mg PO BID Discharge Orders: Discharge Order (Routine); Ordered 04/19/22 Ordered By: Gibson Sharma Admission Data Admit Date/Time: 04/14/22 20:38 Attending Provider: Gibson Sharma Admit Provider: Kofi Coleman Primary Care Provider: Sly Ulloa I. Other Providers: Can Aguillon ; Ramos Hernandez ; Emerson Hanna ; Sterling Lora ; Raul Hutson ; Jason Beauchamp I. ; Carlos Enrique Ballard II ; Maisha Clifford ; Feng See ; Iraj Damian ; Jairo Carrero ; [facility] Other Interventions: Discharge Summary Assessment (RN) Last Done: 04/19/22 15:45
[2022-04-19] MEDS ORDERED: predniSONE 5 MG TAB PO SCH (21:00)
== END 2022-04-19 16:16 | DRG 727 ==
LOC: ED 14:35 → 2S 20:38 → SUATTDRO 20:38 → 2S 21:50